=== PATIENT | female | born 1955 | race Caucasian/White ===

== ENCOUNTER 2018-07-25 16:45 | Outpatient (REF) | payer OTHER, SELFPAY ==
--- NOTE | 2018-07-25 15:30 | PAPFT_PTH ---
PATIENT: Melinda Sky LOC: [facility] U#:[id number] AGE/SX: 63/F ROOM: RE07/25/[address]: RAJ Lynn : 1955 BED: DIS: 07/25/2018 SPEC #: [id number] RECD: 07/26/18 12:51 STATUS: FANI SPENCER #: [id number] RACHAEL: 07/25/18 15:[address]: Meseret Patel DEPT: [facility] Cytology RECD BY: Melina Aparicio Tissues: 1 - CX/ENDOCX FOR PAP SMEARS Procedures: PAP THIN PREP/UVM Screening Comments: [id number] (UNSATISFACTORY FOR EVALUATION)
== END 2018-07-25 17:05 ==
LOC: LBN 16:45
PROVIDERS: PCP Nurse Practitioner Family; Visit Provider Nurse Practitioner Family
DX: Z12.4 Encounter for screening for malignant neoplasm of cervix (principal); Z11.51 Encounter for screening for human papillomavirus (HPV)
CPT/HCPCS: 88142; 87624

== ENCOUNTER 2018-07-25 16:52 | Outpatient (CLI) | payer OTHER, SELFPAY ==
[2018-07-25 18:58] LABS: Anion Gap 6.5 mmol/L (3-11); BUN 11 mg/dL (7-18); CO2 31.5 mmol/L (21.0-32.0); CREATININE 0.67 mg/dL (0.55-1.02); Calcium 8.8 mg/dL (8.5-10.1); Chloride 99 mmol/L (98-107); Cholesterol 161 mg/dL (50-200); Glucose 87 mg/dL (70-100); HDL Cholesterol 69 mg/dL (40-60); LDL CHOLESTEROL 86 mg/dL (<100); Potassium 3.7 mmol/L (3.5-5.1); Sodium 137 mmol/L (136-145); Triglyceride 39 mg/dL (30-150)
== END 2018-07-25 17:12 ==
PROVIDERS: PCP Nurse Practitioner Family; Visit Provider Nurse Practitioner Family
DX: I10 Essential (primary) hypertension (principal)
CPT/HCPCS: 36415; 80048; 80061; 83721

== ENCOUNTER 2018-10-04 09:28 | Outpatient (REF) | payer OTHER, SELFPAY ==
--- NOTE | 2018-10-04 08:30 | PAPFT_PTH ---
PATIENT: Melinda Sky LOC: [facility] U#:[id number] AGE/SX: 63/F ROOM: RE10/04/[address]: RAJ Lynn : 1955 BED: DIS: 10/04/2018 SPEC #: [id number] RECD: 10/04/18 12:49 STATUS: FANI SPENCER #: [id number] RACHAEL: 10/04/18 08:[address]: Meseret Patel DEPT: [facility] Cytology RECD BY: Melina Aparicio Tissues: 1 - CX/ENDOCX FOR PAP SMEARS Procedures: PAP THIN PREP/UVM Screening HPV DNA PROBE Comments: [id number]
== END 2018-10-04 09:48 ==
LOC: LBN 09:28
PROVIDERS: PCP Nurse Practitioner Family; Visit Provider Nurse Practitioner Family
DX: Z12.4 Encounter for screening for malignant neoplasm of cervix (principal); Z11.51 Encounter for screening for human papillomavirus (HPV)
CPT/HCPCS: 88142; 87624

== ENCOUNTER 2019-01-03 12:30 | Outpatient (REF) | payer OTHER, SELFPAY | END 2019-01-03 12:50 | LOC: LBN 12:30 | PROVIDERS: PCP Nurse Practitioner Family; Visit Provider Nurse Practitioner Family | DX: N30.90 Cystitis, unspecified without hematuria (principal) | CPT/HCPCS: 87077; 87086; 87186 ==

== ENCOUNTER 2019-08-02 02:32 | Outpatient (CLI) | payer OTHER, SELFPAY ==
[2019-08-02 07:50] LABS: Hemoglobin A1C 5.2 % (4.5-6.2)
[2019-08-02 08:59] LABS: BUN 16 mg/dL (7-18); CREATININE 0.68 mg/dL (0.55-1.02); Calcium 9.3 mg/dL (8.5-10.1); Calculated LDL 87 mg/dL; Chloride 104 mmol/L (98-107); Cholesterol 163 mg/dL (50-200); Glucose 87 mg/dL (70-100); HDL Cholesterol 69 mg/dL (40-60); Potassium 4.1 mmol/L (3.5-5.1); Sodium 141 mmol/L (136-145); Triglyceride 38 mg/dL (30-150)
== END 2019-08-02 02:52 ==
PROVIDERS: PCP Nurse Practitioner Family; Visit Provider Nurse Practitioner Family
DX: I10 Essential (primary) hypertension (principal)
CPT/HCPCS: 36415; 80048; 80061; 83036

== ENCOUNTER 2020-08-06 20:50 | Outpatient (REF) | payer MEDICARE, BC, SELFPAY ==
[2020-08-06 21:27] LABS: Anion Gap 6.6 mmol/L (3-11); BUN 14 mg/dL (7-18); CO2 29.4 mmol/L (21.0-32.0); Calcium 9.5 mg/dL (8.5-10.1); Chloride 98 mmol/L (98-107); Glucose 96 mg/dL (74-106); Potassium 3.9 mmol/L (3.5-5.1); Sodium 134 mmol/L (136-145)
== END 2020-08-06 21:10 ==
LOC: LBN 20:50
PROVIDERS: PCP Nurse Practitioner Family; Visit Provider Nurse Practitioner Family
DX: I10 Essential (primary) hypertension (principal)
CPT/HCPCS: 80048

== ENCOUNTER 2020-09-15 01:01 | Outpatient (CLI) | payer MEDICARE, BC, SELFPAY ==
--- NOTE | 2020-09-15 08:00 | DI.DEXA_ITS ---
EXAM: XR DEXA BONE DENSITY W/WO ABRAM CLINICAL HISTORY: Osteoporosis screening IN POSTMENOPAUSAL WOMAN,Z78.0 TECHNIQUE: COMPARISON: No exams were available for comparison FINDINGS: Lateral Spine Image: Unremarkable. No compression deformities identified. Left hip: Total T-Score: 0.5 Total Z-Score: 1.7 T- and Z-scores: Within normal limits. Lumbar Spine: Total T-Score: 1.5 Total Z-Score: 3.3 T- and Z-scores: Within normal limits. IMPRESSION: No evidence of osteoporosis.
== END 2020-09-15 01:21 ==
PROVIDERS: PCP Nurse Practitioner Family; Visit Provider Nurse Practitioner Family
DX: Z78.0 Asymptomatic menopausal state (principal)
CPT/HCPCS: 77080

== ENCOUNTER 2020-10-07 03:45 | Outpatient (CLI) | payer MEDICARE, BC, SELFPAY ==
[2020-10-07 10:30] LABS: Anion Gap 7.6 mmol/L (3-11); BUN 16 mg/dL (7-18); CO2 29.4 mmol/L (21.0-32.0); CREATININE 0.71 mg/dL (0.55-1.02); Calcium 8.9 mg/dL (8.5-10.1); Chloride 101 mmol/L (98-107); Glucose 106 mg/dL (74-106); Potassium 3.7 mmol/L (3.5-5.1); Sodium 138 mmol/L (136-145)
== END 2020-10-07 04:05 ==
PROVIDERS: PCP Nurse Practitioner Family; Visit Provider Nurse Practitioner Family
DX: E87.1 Hypo-osmolality and hyponatremia (principal)
CPT/HCPCS: 36415; 80048

== ENCOUNTER 2021-09-24 02:55 | Outpatient (CLI) | payer MEDICARE, BC, SELFPAY ==
[2021-09-24 12:46] LABS: Anion Gap 9.2 mmol/L (3-11); BUN 10 mg/dL (7-18); CO2 28.8 mmol/L (21.0-32.0); CREATININE 0.6 mg/dL (0.55-1.02); Calcium 8.9 mg/dL (8.5-10.1); Calculated LDL 89 mg/dL (<100); Chloride 97 mmol/L (98-107); Cholesterol 162 mg/dL (<200); Glucose 85 mg/dL (74-106); HDL Cholesterol 61 mg/dL (40-60); Potassium 3.6 mmol/L (3.5-5.1); Sodium 135 mmol/L (136-145); Triglyceride 60 mg/dL (<150)
== END 2021-09-24 02:56 | disposition home or self-care (01) ==
PROVIDERS: PCP Nurse Practitioner Family; Visit Provider Nurse Practitioner Family
DX: I10 Essential (primary) hypertension (principal)
CPT/HCPCS: 36415; 80048; 80061

== ENCOUNTER → 2022-04-15 09:49 | Outpatient (BNVA) | payer MEDICARE, BC, SELFPAY | PROVIDERS: PCP Nurse Practitioner Family; Referring Provider Nurse Practitioner Family; Visit Provider Physical Therapy Assistant | DX: Z12.11 Encounter for screening for malignant neoplasm of colon (principal) ==

== ENCOUNTER 2022-05-02 06:44 | Day surgery (SDC) | payer MEDICARE, BC, SELFPAY ==
--- NOTE | 2022-05-02 06:49 | W.COLOREPORT ---
Colonoscopy Report Date of procedure: 05/02/22 Pre-op diagnosis general: Colon Cancer Screening Post-op diagnosis procedure note: other (small polyp) Procedure: Colonoscopy with polypectomy Surgeon: Seble Burgess Anesthesia Type: General:No Airway Estimated blood loss (mL): 2 Pathology: other (ascending polyp) Complications: None Disposition: same day Indications: The patient is here for Colonoscopy pre-op. Her last screening was in 2010 and was unremarkable. She has no family history of colon cancer. She has not had any bowel habit changes. Prep: Miralax/Dulcolax Procedure Start Time: 08:33 Procedure End Time: 09:00 Retraction Time: 11 minutes Findings: One small polyp Procedure Description: After informed consent was obtained the patient was taken to the procedure room and placed in a left decubitous position. Monitors were applied and a time out was done. The patients name, date of , procedure, allergies to medications and metal in their body was reviewed. The patient was then sedated. Once sedated and comfortable a rectal exam was done. External exam was normal. Internal exam revealed a normal sphincter tone and no palpable masses. The scope was then introduced and retro-flexed. no internal hemorrhoids, polyps or masses were identified on retro-flexion. The scope was then advanced to the cecum without difficulty. The ileocecal vlave and appendiceal orifice were identified. The prep was good. The scope was then slowly retracted over 11 minutes back into the rectum. Polyps were removed with cold forceps in the ascending colon. There was no diverticulosis noted. The scope was removed and the patient was woken up and taken back to Same day surgery in stable condition. The patient tolerated the procedure well and there were no immediate complications.
[2022-05-02 06:50] VITALS: BP 144/89; PULSE 74; RESP 18; TEMP 36.6; O2SAT 99
--- NOTE | 2022-05-02 06:51 | W.PM.DSUDISC ---
Discharge Plan Disposition Patient Disposition: HOME Condition: Good Discharge Details Reason For Visit: Colon Cancer Screening Attending Provider: Seble Burgess Primary Care Provider: Meseret Patel Home Meds and New Rx's Prescriptions: Continued glucos sul [id number]-[id number]-[id number]-C-Mn 550-30-1 mg capsule 1 cap PO DAILY PreserVision AREDS 14,320-226-200 znan-vy-owvg capsule 1 cap PO QAM AND QPM Airborne Elderberry 1,000 mg-50 mg-35.5 mg tablet, effervescent 1 tab PO DAILY ondansetron 4 mg tablet,disintegrating 4 mg PO TID PRN (Reason: nausea and vomiting) Qty: 30 0RF Rx Instructions: Dissolve 1 tab beneath tongue q6-8hrs as needed for nausea during plane trips multivitamin [Multi-Day] 1 EACH tablet 1 ea PO DAILY ascorbic acid (vitamin C) 1,000 MG tablet 1,000 mg PO DAILY calcium carbonate-vitamin D3 1 EACH capsule 1 ea PO DAILY echinacea 400 MG capsule 2 cap PO am CRANBERRY + VIT C SOFTGEL 4,200 mg capsule 2 each PO DAILY chlorthalidone 25 mg tablet 25 mg PO DAILY Qty: 90 4RF Rx Instructions: Take 1 pill daily losartan 100 mg tablet 100 mg PO DAILY Qty: 90 4RF Discontinued bisacodyl [Dulcolax (bisacodyl)] 5 mg tablet,delayed release (DR/EC) 5 mg PO ONCE Qty: 4 0RF Rx Instructions: Take according to provider's instructions for colonoscopy prep. polyethylene glycol 3350 17 gram/dose powder 17 g PO ONCE Qty: 238 0RF Rx Instructions: To be taken as directed by prescriber's office for colonoscopy prep. Discharge Instructions Additional Instructions: Findings: one small polyp Follow up: 5 years Please call if you develop: fevers >101.5 Nausea or Vomiting Abdominal pain that is not transient Rectal bleeding that is more then a tbsp A hard abdomen and inability to pass gas DAY SURGERY UNIT POST ENDOSCOPY INSTRUCTIONS Instructions for everyone who is given Anesthesia: For your safety, please do the following for the next 24 Hours: a. Do not drive or operate dangerous equipment b. Do not drink alcohol beverages or use any recreational drugs for the first 24 hours or while taking pain medications. The medications in your body may have a reaction that can be dangerous. c. Do not make any important decisions or sign any important papers 1. Generally there are no restrictions on your activity after a day or so has gone by, but you may feel a bit fatigued for a few days. 2. After you arrive home you may have a light meal and return to a normal diet as you can tolerate it without feeling sick to your stomach. 3. After surgery, you may feel pain or discomfort. This should be only transient, but if it persists please contact your doctor. 4. If there are any questions regarding the findings of your procedure, please feel free to contact your doctor. 6. If you are unable to contact your doctor with a problem, contact the hospital at [phone]. 7. Continue all your regular medications unless directed otherwise. I understand the above instructions and have no questions. Signature of Patient or Responsible Adult Escort Date/Time Name of Responsible Adult Escort Signature of Nurse Date/Time Activity:: Activity as Tolerated Diet:: As Tolerated Discharge Orders Discharge Orders: Discharge Order (Routine); Ordered 05/02/22 Ordered By: Seble Burgess
--- NOTE | 2022-05-02 06:59 | W.ANESPRE ---
General Info Date of Service Date Performed: 05/02/22 Height: 5 ft 6 in Weight: 65.317 kg Body Mass Index (BMI): 23.2 Surgical Procedure: Operation Date: 05/02/22 08:35 Proposed Procedure Side Surgeon alma Burgess MD Meds Allergies and Home Medications Allergies Allergy/AdvReac Type Severity Reaction Status Date / Time chocolate flavor AdvReac Severe MIGRAINE, Verified 05/02/22 06:36 peanut AdvReac Severe COUGHING, Verified 05/02/22 06:36 WHEEZING lisinopril AdvReac Mild COUGH Verified 05/02/22 06:36 fake fur, fleece Allergy Severe RASH, Uncoded 05/02/22 06:36 ASTHMA ATTACK PINK INSULATION Allergy Severe SWELLING Uncoded 05/02/22 06:36 Home Medication Medication Instructions Recorded ascorbic acid (vitamin C) 1,000 mg 1,000 mg PO DAILY 02/09/13 tablet calcium carbonate 600 mg-vitamin 1 ea PO DAILY 02/09/13 D3 10 mcg (400 unit) capsule multivitamin (Multi-Day tablet) 1 ea PO DAILY 02/09/13 echinacea 400 mg capsule 2 cap PO am 02/12/13 ondansetron 4 mg disintegrating 4 mg PO TID PRN nausea and 07/25/18 tablet vomiting #30 tabs CRANBERRY + VIT C SOFTGEL 2 each PO DAILY 07/31/19 glucosamine sulf dipot 1 cap PO DAILY 07/31/19 chlr,msm,chond 550 mg-C 30 mg-edwin 1 mg capsule mv-min-vit C 1,000 mg-elderberry 1 tab PO DAILY 08/06/20 50 mg-herb 35.5mg effervescent tablet (Airborne Elderberry) vitamins A,C,F-dzqf-aaysfy 14,320 1 cap PO QAM AND QPM 08/06/20 unit-226 mg-200 unit capsule (PreserVision AREDS) chlorthalidone 25 mg tablet 25 mg PO DAILY #90 tabs 08/04/21 losartan 100 mg tablet 100 mg PO DAILY #90 tabs 08/04/21 bisacodyl 5 mg tablet,delayed 5 mg PO ONCE #4 tabs 04/15/22 release (Dulcolax (bisacodyl)) polyethylene glycol 3350 17 17 g PO ONCE #238 grams 04/15/22 gram/dose oral powder Current Visit Medications: Current Medications Generic Name Dose Route Start Last Admin Trade Name Freq PRN Reason Stop Dose Admin Hyoscyamine Sulfate 0.125 mg 05/02/22 06:52 Hyoscyamine 0.125 Mg Sl/Oral/Chew SL DIRECTED PRN Ringer's Solution 1,000 mls @ 80 mls/hr 05/02/22 06:00 IV 05/29/22 23:59 INFUSION RICARDO IV Miscellaneous Supplies 1 each 05/02/22 06:00 Iv Access IV 05/29/22 23:59 DIRECTED RICARDO Ondansetron HCl 4 mg 05/02/22 06:52 Ondansetron 4 Mg/2 Ml Vial IVP Q4H PRN PRN Nausea / Vomiting Sodium Chloride 0 ml 05/02/22 06:00 Normal Saline Flush 10 Ml Syr IV 05/29/22 23:59 PRN PRN Sodium Chloride 0 ml 05/02/22 06:00 Normal Saline 10 Ml Vial IJ 05/29/22 23:59 DIRECTED PRN Sterile Water 0 ml 05/02/22 06:00 Water,Injection,Sterile 10 Ml Vial IJ 05/29/22 23:59 DIRECTED PRN PFSH Active Problems Active Problems: Problem Status Onset Code Screening for colon cancer Z12.11 Medical History Medical History Essential hypertension Essential tremor Malignant melanoma of skin of right thigh (~02/1996) 0.5mm Breslow depth, right inner thigh near the medial knee Reactive airway disease Medical History Comments:: Pt. states 30 minutes after she leaves the hospital after a colonoscopy she ends up throwing up. Surgical History Surgical History Hx of colonoscopy S/P removal of ovarian cyst (~1981) S/P right breast biopsy (10/20/10) Benign biopsy--dense stromal fibrosis S/P tonsillectomy and adenoidectomy Tobacco Smoking/Tobacco Use Status: Never Passive smoking exposure: No Second hand exposure: Yes Alcohol Alcohol Intake: never Substance Use Substance use: Never Substance use type: does not use Prental History History 0 Para Hx # Term Pregnancies Multiple births Hx # Pregnancies Ectopic pregnancies AB induced Hx Number of Living Children AB spontaneous Vital Signs and Lab Results Lab Results Blood Type / Crossmatch: No Data to Display Complete Blood Count: No Data to Display Complete Metabolic Panel: No Data to Display Liver Function Panel: No Data to Display Coagulation Panel: No Data to Display Cardiac Panel: No Data to Display Arterial Blood Gas: No Data to Display Venous Blood Gas: No Data to Display Pancreas Panel: No Data to Display Thyroid Panel: No Data to Display Infectious Disease: No Data to Display Blood Cultures: No Data to Display Toxicology Panel: No Data to Display Anesthesia Assessment and Plan Anesthesia History Personal History: PONV Family History: No Family History of Anesthesia Complications Exercise Tolerance Exercise Tolerance: Metabolic Equivalents>4 Pertinent Negatives Pertinent Negatives: No Symptoms of GERD, No Major Cardiovascular Symptoms or Complaints, No Major Pulmonary Symptoms or Complaints and No History of CVA/TIA Cardiac & Pulmonary Exam Cardiac Exam: Normal S1/S2 Heart Sounds Pulmonary Exam: Clear Bilateral Breath Sounds Implantable Cardiac Device Does patient have a Pacemaker or an ICD?: No Airway Exam Known Difficult Airway: No Mallampati Class: 2 Mouth Opening: Normal (> 3cm) Thyromental Distance: Greater than 3 cm Neck Range of Motion: Full ROM Neck Circumference: Normal Teeth Condition: Normal Dentition ASA Classification ASA Score: ASA 2 Emergency Case?: No NPO Status NPO Status: NPO Clears >2 hours, Solids >8 hours Anesthesia Plan Resuscitation Status: Full Code Anesthesia Technique: General Anesthesia Airway Planned: Natural Airway Monitors Used: Standard Monitors
[2022-05-02] MEDS: Lactated Ringers 1,000 ML 80 ML IV (07:15)
[2022-05-02 08:40] VITALS: BMI 23.2
--- NOTE | 2022-05-02 08:50 | BOWEL_PTH ---
PATIENT: Melinda Sky LOC: [facility] U#:[id number] AGE/SX: 67/F ROOM: RE05/02/[address]: Seble Burgess MD : 1955 BED: DIS: 05/02/2022 SPEC #: [id number] RECD: 05/02/22 13:07 STATUS: FANI SPENCER #: [id number] RACHAEL: 05/02/22 08:[address]: Seble Burgess DEPT: Surgical Specimen RECD BY: Melina Aparicio ENTERED: 05/02/22 13:08 SP TYPE: Bowel OTHR DR: RAJ Lynn Tissues: 1 - BIOPSY BOWEL Procedures: GROSS AND MICRO LEVEL 4 Comments: [id number]
[2022-05-02 09:08] VITALS: BP 105/71; PULSE 59; RESP 16; TEMP 36.2; O2SAT 98
[2022-05-02 09:30] VITALS: BP 111/78; PULSE 58; RESP 16; TEMP 36.2; O2SAT 96
--- NOTE | 2022-05-02 09:32 | W.ANESPOSTOP ---
Postoperative Evaluation Date, Time and Location Date Performed: 05/02/22 Time Performed: 09:10 Patient Location: Day Surgery Unit Vital Signs Most Recent Imported Vital Signs: Most Recent Vital Signs Temp Pulse Resp BP Pulse Ox 36.2 C L 59 L 16 105/71 98 05/02/22 09:08 05/02/22 09:08 05/02/22 09:08 05/02/22 09:08 05/02/22 09:08 Pain Score Most Recent Pain Score: Most Recent Pain Score Pain Level 0 05/02/22 09:08 Assessment Mental Status: Awake (Alert & Oriented to Patient Baseline) Airway and Respiratory Function: Patent airway with normal (patient baseline) respiratory exam Cardiovascular Function: Hemodynamically Stable Hydration Status: Adequately Hydrated Nausea & Vomiting: No Nausea or Vomiting Pain: Pt. Denies Any Pain Peripheral Nerve Block: Patient did not receive a nerve block
== END 2022-05-02 09:54 | disposition home or self-care (01) ==
PROVIDERS: PCP Nurse Practitioner Family; Visit Provider Surgery
PROC: 0DJD8ZZ Inspection of Lower Intestinal Tract, Via Natural or Artificial Opening Endoscopic (ICD-10-PCS; CPT 45378; principal; 2022-05-02 08:30)
DX: Z12.11 Encounter for screening for malignant neoplasm of colon (principal); K63.5 Polyp of colon; I10 Essential (primary) hypertension; K63.89 Other specified diseases of intestine
CPT/HCPCS: 45380; 88305; J2405

== ENCOUNTER 2022-10-07 01:24 | Outpatient (CLI) | payer MEDICARE, BC, SELFPAY ==
--- OUTSIDE RECORDS SUMMARY | 2022-10-07 01:34 | XMS_ITS | Encounter Summary ---
:1955 Author Organization [place] [address] Care Team Providers Name Role Phone Alison Clemons MD Primary Care Provider Encounter Details Date Type Department Care Team Description 10/20/2010 Procedure visit [place] [address] Social History Tobacco Use Types Packs/Day Years Used Date Smoking Tobacco: Never Assessed Sex Assigned at Date Recorded Not on file documented as of this encounter Plan of Treatment Upcoming Encounters Date Type Specialty Care Team Description 01/09/2023 Office Visit Dermatology Keyshawn Morin MD [address] [place] [address] DERMATOLOGY [place], [place] [address] (Wo rk) documented as of this encounter Visit Diagnoses Not on filedocumented in this encounter Care Teams Escalator Mechanic Relationship Specialty Start Date End Date Alison Clemons MD PCP - General 09/28/10 11/30/17 [address] [place], [place] [address] documented as of this encounter
--- OUTSIDE RECORDS SUMMARY | 2022-10-07 01:34 | XMS_ITS | Encounter Summary ---
:1955 Author Organization [facility] [place] [address] Care Team Providers Name Role Phone Alison Clemons MD Primary Care Provider Reason for Visit Reason Comments Annual Exam Encounter Details Date Type Department Care Team Description 10/09/2012 Office Visit Dermatology Keyshawn Morin, History of malignant [address] [facility] melanoma (Primary Dx) [address] [place], [place] DERMATOLOGY [id number] [place] [address] [phone] (Wo rk) Social History Tobacco Use Types Packs/Day Years Used Date Smoking Tobacco: Never Smokeless Tobacco: Never Sex Assigned at Date Recorded Not on file documented as of this encounter Progress Notes Keyshawn Morin MD - 10/09/2012 8:36 AM EST Problems: 1. Yearly skin checkup. 2. History of malignant melanoma, February 1996, 0.54 mm, right inner thigh near medial knee. Rhina follows up and has been doing well. She has not had any new issues. She is here for a yearly skin checkup. Physical examination reveals a pleasant, now 57-year-old woman who has a benign examination of the head and the neck, the chest, the back, hands, arms, forearms, thighs, and calves. She continues to have a 4-mm, dark brown, compound versus intradermal nevus on the mid to lower occipital scalp centrally. There is no evidence of recurrent melanoma on the right inner thigh excision site. She has two acrolentiginous nevi on the sole of her right foot, similarly sized as per the photograph from April 2005. Assessment and Plan: Benign skin examination. a. Patient reassured about benign skin examination. b. Return to the clinic in one year for recheck. c. Continue sun avoidance precautions. d. No evidence of recurrent melanoma from February 1996. Copy: Alison Clemons M.D. documented in this encounter Plan of Treatment Upcoming Encounters Date Type Specialty Care Team Description 01/09/2023 Office Visit Dermatology Keyshawn Morin MD [address] [place] [address] DERMATOLOGY [place], [place] [address] (Wo rk) documented as of this encounter Visit Diagnoses Diagnosis History of malignant melanoma - Primary Personal history of malignant melanoma o f skin documented in this encounter Care Teams Gyroscope Repairer Relationship Specialty Start Date End Date Alison Clemons MD PCP - General 09/28/10 11/30/17 [address] [place] [address] documented as of this encounter
--- OUTSIDE RECORDS SUMMARY | 2022-10-07 01:34 | XMS_ITS | Encounter Summary ---
:1955 Author Organization [facility] [place] [address] Care Team Providers Name Role Phone Meseret Patel APRN Primary Care Provider Reason for Referral Diagnostic Test (Routine) - Closed Specialty Diagnoses / Procedures Referred By Contact Refer red To Contact Radiology Diagnoses Encounter for screening mammogram for malignant neoplasm of breast Meseret Patel APRN [facility] Rad Mammography Procedures Mammo Screening Cad and Jewel Bilateral [address] [place], [place] [address] [place] [address] Phone: Referral ID Status Reason Start Date Expiration Date Visits V isits Requested Authorized [id number] Closed Specialty 11/01/2021 05/02/2023 1 1 Service Requested Reason for Visit Diagnostic Test (Routine) - Closed Specialty Diagnoses / Procedures Referred By Contact Refer red To Contact Radiology Diagnoses Encounter for screening mammogram for malignant neoplasm of breast Meseret Patel APRN [facility] Rad Mammography Procedures Mammo Screening Cad and Jewel Bilateral [address] [place], [place] [address] [place] [address] Phone: Referral ID Status Reason Start Date Expiration Date Visits V isits Requested Authorized [id number] Closed Specialty 11/01/2021 05/02/2023 1 1 Service Requested Encounter Details Date Type Department Care Team Description 12/08/2021 Hospital Encounter Mammography/DXA at [facility] , Encounter for [facility] [employer]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 0 2012 (VITAMIN C) 1,000 mg Tablet ketoconazole (NIZORAL) 2 % Use on a daily 120 mL 0 01/03 Shampoo basis for 2 wks and then switch to selenium sulfide 2.5% lotion. Rinse out lather after 2-3 min. Cranberry Extract 450 mg Take by mouth. 0 Tablet CIS Free Text Med - 0 11/30/2006 Calcium 600 with Vitamin D2 multivitamin (THERAGRAN) 0 11/30/2006 tablet losartan-hydrochlorothiazi 1 Tablet(s), PO, 0 de (HYZAAR) 100-25 mg per Once daily tablet losartan (COZAAR) 100 mg 0 12/24/2020 01/06/2022 Tablet documented as of this encounter Plan of Treatment Upcoming Encounters Date Type Specialty Care Team Description 01/09/2023 Office Visit Dermatology Keyshawn Morin MD [address] [place] [address] RD DERMATOLOGY [place], [place] [address] (Wo rk) documented as of this encounter Procedures Procedure Name Priority Date/Time Associated Diagnosis Comme nts MAMMO SCREENING CAD Routine 12/08/2021 10:48 AM Encounter for Results for this AND JEWEL BILATERAL EST screening mammogram pr ocedure are in for malignant the results neoplasm of breast section. documented in this encounter Results Mammo Screening Cad and Jewel Bilateral (12/08/2021 10:48 AM EST) Anatomical Region Laterality Modality Breast Bilateral Mammography Specimen (Source) Anatomical Location Collection Method / Collectio n Time Received Time / Laterality Volume Narrative 12/08/2021 11:10 AM EST BILATERAL MAMMOGRAPHY REASON FOR EXAM: Screening TECHNIQUE: CC and MLO views were obtaine d of each breast using standard 2-D mammography as well as 3-D tomosynth esis. Computer aided detection was used. This is compared with prior images . FINDINGS: There are scattered areas of f ibroglandular density. There are no suspicious microcalcifications, radha s, or areas of distortion. The pattern is stable. CONCLUSION: No mammographic evidence of malignancy. RECOMMENDATION: Regular screening mammograms starting be tween age 40 and 50 reduces the risk of from breast cancer. All screening tests have both risks and benefits. These risks and benefits should be assessed for each individual p atient through discussion with their provider to determine their prefer red breast cancer screening schedule. Women should report any breast changes t o a health care provider right away. Some women, because of their family hist ory, a genetic tendency, or other factors, should be screened with annual breast MRI as well as with mammograms. (The number of women who fal l into this category is very small). Patients and health care provide rs should discuss each patient? s history to decide if earlier screening a nd/or breast MRI are appropriate. Screening should continue as long as a w randy is in good health and is expected to live 10 years or longer. Screening mammography may not detect 10- 15% of breast cancers. A result letter has been sent to this pa tient by [facility]. BIRADS CATEGORY 1: NEGATIVE Electronically signed by: VENKATESH ZUNIGA MD Meseret Patel APRN IMG MAMMO ORDERABLES documented in this encounter Visit Diagnoses Diagnosis Encounter for screening mammogram for ma lignant neoplasm of breast Other screening mammogram documented in this encounter Care Teams Manager Clinical Pharmacy Relationship Specialty Start Date End Date Meseret Patel APRN PCP - General Family Medicine 12/07/[address] [place] [address] documented as of this encounter
--- OUTSIDE RECORDS SUMMARY | 2022-10-07 01:34 | XMS_ITS | Encounter Summary ---
:1955 Author Organization [facility] [place] [address] Care Team Providers Name Role Phone Alison Clemons MD Primary Care Provider Reason for Visit Reason Comments Skin Check Encounter Details Date Type Department Care Team Description 09/25/2014 Office Visit Dermatology at [facility], History of malignant melanoma; Derrick GUERRERO Irritated nevus of right upper arm [address] [facility] Mariano B DERMATOLOGY [place], [place] [id number] [phone] Social History Tobacco Use Types Packs/Day Years Used Date Smoking Tobacco: Never Smokeless Tobacco: Never Sex Assigned at Date Recorded Not on file documented as of this encounter Progress Notes Keyshawn Morin MD - 09/25/2014 3:35 PM EST Problem List: 1. Early yearly skin checkup. 2. History of malignant melanoma, February 1996, 0.54 mm Breslow depth, right inner thigh near medial knee. Rhina follows up and has been doing well. She continues to be happy with her new relationship with a significant other living from a distance in [place], in [place]. She noted yesterday a mole that started to bleed on the right lateral shoulder and wanted to have it checked. She should have received notice of a October yearly annual check, but had not heard anything yet. Physical examination reveals a pleasant 59-year-old woman who has a 5 mm inflamed pigmented lesion on the right lateral shoulder. It appears to be slightly excoriated. Otherwise, careful examination of the head and the neck, the chest, the back, hands, arms, forearms, thighs, and calves is benign. She continues to have a 4 mm, dark brown, compound versus intradermal nevus on the mid occipital scalp centrally. There is no evidence of recurrent melanoma on the right inner thigh excision site. She continues to have two acral lentiginous nevi on the sole of her right foot, similarly sized as per photograph from April of 2005. Assessment and Plan: 1. Benign skin examination. a. Patient reassured about benign skin examination. b. Continue sun avoidance precautions. c. Recommend I see her in another year for repeat check. 2. Probable irritated nevus, right lateral arm. a. To rule out possibility of melanoma, today shave biopsy was utilized to remove the entire lesion, and it was submitted for pathologic analysis. b. Base was lightly electrodesiccated. c. Wound care instructions and supplies given. Will notify patient of biopsy results in the next three to four days. COPY: Alison Clemons M.D. documented in this encounter Plan of Treatment Upcoming Encounters Date Type Specialty Care Team Description 01/09/2023 Office Visit Dermatology Keyshawn Morin MD [address] [facility] DERMATOLOGY [place], [place] [address] (Wo rk) documented as of this encounter Visit Diagnoses Diagnosis History of malignant melanoma Personal history of malignant melanoma o f skin Irritated nevus of right upper arm documented in this encounter Care Teams Dust Control Engineer Relationship Specialty Start Date End Date Alison Clemons MD PCP - General 09/28/10 11/30/17 [address] [place] [address] documented as of this encounter
--- OUTSIDE RECORDS SUMMARY | 2022-10-07 01:34 | XMS_ITS | Encounter Summary ---
:1955 Author Organization [facility] [place] [address] Care Team Providers Name Role Phone Alison Clemons MD Primary Care Provider Encounter Details Date Type Department Care Team Description 10/19/2012 Hospital Encounter Mammography at [facility], DR BRI[facility] Alison Tariq MD [address] [place] [address] [place] [address] Social History Tobacco Use Types Packs/Day Years Used Date Smoking Tobacco: Never Smokeless Tobacco: Never Sex Assigned at Date Recorded Not on file documented as of this encounter Medications at Time of Discharge Medication Sig Dispensed Refills Start Date End Date Cranberry Extract 450 mg Take by mouth. 0 Tablet CIS Free Text Med - 0 11/30/2006 Calcium 600 with Vitamin D2 multivitamin (THERAGRAN) 0 11/30/2006 tablet losartan-hydrochlorothiaz 1 Tablet(s), PO, 0 11/07 jesusita (HYZAAR) 100-25 mg Once daily per tablet ZOLPIDEM TARTRATE (AMBIEN Take by mouth 0 01/04/2021 ORAL) nightly as needed. ibuprofen (ADVIL;MOTRIN) 800MG, PO, Three 0 11/3001/04/2021 800 mg tablet times daily PRN ascorbic acid (VITAMIN C) 0 11/30/2006 01/04/2021 1,000 mg tablet documented as of this encounter Plan of Treatment Upcoming Encounters Date Type Specialty Care Team Description 01/09/2023 Office Visit Dermatology Keyshawn Morin MD [address] [place] [address] DERMATOLOGY [place], [place] [address] (Wo rk) documented as of this encounter Procedures Procedure Name Priority Date/Time Associated Diagnosis Comme nts MAMMO SCREENING CAD Routine 10/19/2012 8:38 AM Re sults for this BILATERAL EST procedure are i n the results section. documented in this encounter Results Mammo digital bilateral Screening with CAD (10/19/2012 8:38 AM EST) Anatomical Region Laterality Modality Breast Bilateral Mammography Specimen (Source) Anatomical Collection Method Collection Time Re ceived Time Location / / Volume Laterality 10/19/2012 8:38 AM EST Narrative 10/22/2012 9:56 AM EST Reason for Exam: Screening ?? Technique: Craniocaudal (CC) and Medio-l ateral Oblique (MLO) views of both breasts obtained with direct digital cap ture. The exam was evaluated by CAD version 8. 3.17. ?? Findings: ?? This is a negative mammogram (ACR Catego ry 1). ??There is a stable fibroglandular pattern without significa nt change from prior studies. There is no mammographic evidence of can cer. ??The breasts are of scattered density. ?? CONCLUSION: This is a NEGATIVE mammogram (ACR Catego ry 1). ?? Routine screening mammography is recomme nded with the frequency dependent upon the patient's age and breast cancer risk factors. A letter has been sent to this patient b y the breast imaging center. Procedure Note Thea Loco MD - 10/22/2012Formattin g of this note might be different from the original. Reason for Exam: Screening Technique: Craniocaudal (CC) and Medio-l ateral Oblique (MLO) views of both breasts obtained with direct digital cap ture. The exam was evaluated by CAD version 8. 3.17. Findings: This is a negative mammogram (ACR Catego ry 1). There is a stable fibroglandular pattern without significa nt change from prior studies. There is no mammographic evidence of can cer. The breasts are of scattered density. CONCLUSION: This is a NEGATIVE mammogram (ACR Catego ry 1). Routine screening mammography is recomme nded with the frequency dependent upon the patient's age and breast cancer risk factors. A letter has been sent to this patient b y the breast imaging center. Alison Clemons MD IMG MAMMO ORDERABLES documented in this encounter Visit Diagnoses Not on filedocumented in this encounter Care Teams Marine Electrician Helper Relationship Specialty Start Date End Date Alison Clemons MD PCP - General 09/28/10 11/30/17 [address] [place] [address] documented as of this encounter
--- OUTSIDE RECORDS SUMMARY | 2022-10-07 01:34 | XMS_ITS | Encounter Summary ---
:1955 Author Organization [facility] [place] [address] Care Team Providers Name Role Phone Meseret Patel APRN Primary Care Provider Reason for Visit Reason Comments Skin Check Encounter Details Date Type Department Care Team Description 01/04/2021 Office Visit Dermatology at [facility]in, History of malignant melanoma; Derrick GUERRERO Nevus; [address] [facility] Seborrheic dermatitis [facility] DERMATOLOGY [place], [place] [id number] [phone] Social History Tobacco Use Types Packs/Day Years Used Date Smoking Tobacco: Never Smokeless Tobacco: Never Sex Assigned at Date Recorded Not on file documented as of this encounter Progress Notes Keyshawn Morin MD - 01/04/2021 10:00 AM EST Problem: 1. ??Yearly skin checkup 2. ??History of malignant melanoma, February 1996, 0.5 mm Breslow depth, right inner thigh near the medial knee Rhina follows up for yearly check. She has been doing well. She has not noted any new lesions of concern is here for her yearly skin checkup. She is retired now from work. Physical examination reveals a pleasant 65-year-old woman who has a benign examination of the head and the neck the chest the back the hands the arms the forearms the thighs and the calves. She is a well-healed scar on the right inner thigh near the medial knee. There is no evidence of recurrent pigmentation. She does have an itchy erythematous flattopped papule consistent with an irritated seborrheic keratosis/early nevus on the left medial calf. Assessment plan: History of malignant melanoma 1. Patient reassured about her benign skin examination today 2. Continue sun avoidance precautions. 3. Continue our once yearly skin checkups. 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 Now largely resolved 2. Possibly due to chcf 3. We will renew her prior prescriptions if she requests them. Pruritic papule left lateral calf 1. LN2 x2 applied to site 2. If not successful in stopping itching, patient will make an appointment for shave biopsy removal of the site. CC: Meseret Patel APRN documented in this encounter Plan of Treatment Upcoming Encounters Date Type Specialty Care Team Description 01/09/2023 Office Visit Dermatology Keyshawn Morin MD [address] [facility] DERMATOLOGY [place], [place] [address] (Wo rk) documented as of this encounter Visit Diagnoses Diagnosis History of malignant melanoma Personal history of malignant melanoma o f skin Nevus Benign neoplasm of skin, site unspecifie d Seborrheic dermatitis Seborrheic dermatitis, unspecified documented in this encounter Care Teams Flask Pusher Relationship Specialty Start Date End Date Meseret Patel APRN PCP - General Family Medicine 12/07/[address] [place] [address] documented as of this encounter
--- OUTSIDE RECORDS SUMMARY | 2022-10-07 01:34 | XMS_ITS | Encounter Summary ---
:1955 Author Organization [facility] [place] [address] Care Team Providers Name Role Phone Alison Clemons MD Primary Care Provider Encounter Details Date Type Department Care Team Description 10/13/2011 Surgery Gastroenterology at [facility] Joshua Rosas, COLONOSCOPY, [facility] Kg ibrahim [place] [address] [facility] [phone] DR GASTROENTEROLOGY DEPT. [place], [place] [address] Social History Tobacco Use Types Packs/Day Years Used Date Smoking Tobacco: Never Smokeless Tobacco: Never Sex Assigned at Date Recorded Not on file documented as of this encounter Last Filed Vital Signs Vital Sign Reading Time Taken Comments Blood Pressure 122/75 10/13/2011 9:26 AM EST Pulse 64 10/13/2011 9:26 AM EST Temperature 36.7 ??C (98.1 ??F) 10/13/2011 8:20 AM EST Respiratory Rate 16 10/13/2011 9:26 AM EST Oxygen Saturation 97% 10/13/2011 9:26 AM EST Inhaled Oxygen Concentration - - Weight 67.6 kg (149 lb) 10/13/2011 8:20 AM EST Height - - Body Mass Index - - documented in this encounter Discharge Instructions Discharge Belinda Smith RN - 10/13/2011 9:27 AM EST Please call [phone], before 5pm with problems, questions or concerns, after 5pm call the Hospital at [phone] and ask to speak to the Line Therapist ordnance truck installation mechanic and the mud mixer operator will contact that person for you. Discharge instructions reviewed with patient who expresses understanding. Patient InstructionsJoshua Rosas MD - 10/13/2011 9:36 AM EST Please see Recommendations in the Provation procedure report which is documented in the procedural note in E-DH. AttachmentsThe following attachments cannot be sent through Care Everywhere. COLONOSCOPY: WHAT TO EXPECT AT HOME (ITALIAN)documented in this encounter Medications at Time of Discharge Medication Sig Dispensed Refills Start Date End Date CIS Free Text Med - 0 11/30/2006 Calcium 600 with Vitamin D2 multivitamin (THERAGRAN) 0 11/30/2006 tablet losartan-hydrochlorothiaz 1 Tablet(s), PO, 0 11/07 jesusita (HYZAAR) 100-25 mg Once daily per tablet GLUC/EDMAR-MSM#1/C/LEEANN/GLORIA Take by mouth daily. 0 10/09/2012 S/BOR (OSTEO BI-FLEX ORAL) ZOLPIDEM TARTRATE (AMBIEN Take by mouth 0 01/04/2021 ORAL) nightly as needed. CIS Free Text Med - 90MC-2 Puff(s), 0 007 10/09/2012 Albuterol Inh, Four times daily PRN ibuprofen (ADVIL;MOTRIN) 800MG, PO, Three 0 11/3001/04/2021 800 mg tablet times daily PRN ascorbic acid (VITAMIN C) 0 11/30/2006 01/04/2021 1,000 mg tablet documented as of this encounter H&P Notes Joshua Rosas MD - 10/13/2011 8:50 AM EST H&P done prior to procedure and documented in the endoscopy report located in the Procedures tab in eDH. documented in this encounter Miscellaneous Notes Miscellaneous - Provider, Scanning - 10/13/2011 9:24 PM EST Miscellaneous - Provider, Scanning - 10/13/2011 9:33 AM EST Op Note - Joshua Rosas MD - 10/13/2011 9:29 AM EST [facility] Operative Note Patient Name: Melinda Sky : [id number] MR#: [id number] Case Date: 10/13/2011 Surgeon: Surgeon(s) and Role: * JOSHUA ROSAS MD - Primary Preoperative diagnosis: 10YR SCREENING Postoperative diagnosis: * No post-op diagnosis entered * Procedure(s): COLONOSCOPY, DIAGNOSTIC Please see Procedure note. documented in this encounter Plan of Treatment Upcoming Encounters Date Type Specialty Care Team Description 01/09/2023 Office Visit Dermatology Keyshawn Morin MD [address] [facility] DERMATOLOGY [place], [place] [address] (Wo rk) documented as of this encounter Procedures Procedure Name Priority Date/Time Associated Comments Diagnosis COLONOSCOPY, 10/13/2011 8:53 AM 10YR SCREENING DIAGNOSTIC EST COLONOSCOPY Routine 10/13/2011 8:39 AM Results f or this EST procedure are i n the results section. documented in this encounter Results COLONOSCOPY (10/13/2011 8:39 AM EST) [facility] Method Time Signature COLONOSCOPY [facility] PROVATION Endoscopy Patient Name: Melinda Sky ? Procedure Date: 10/13/2011 08:39:32 AM ? Date of : 1955 ? Age: 56 ? Procedure: ? Colonoscopy Indications: ? Screening for malignant neoplasm in ? the colon Providers: ? Joshua Rosas MD, Nany Loomis ? TEJAS Paz, Anette Linton, ? Administrative Services Manager Referring : ?Alison Clemons MD Medicines: ? Midazolam 6 mg IV, Fentanyl 200 ? micrograms IV Complications: ? No immediate complications Procedure: ? Pre-Anesthesia Assessment: ? - Prior to the procedure, a H istory ? and Physical was performed, a nd ? patient medications, allergie s and ? sensitivities have been revie wed. The ? patient's tolerance of previo us ? anesthesia has been reviewed. ? - The risks and benefits of t he ? procedure and the sedation op tions ? and risks were discussed with the ? patient. All questions were a nswered ? and informed consent was obta ined. ? - ASA Grade Assessment: I - A normal, ? healthy patient. ? The procedure, indications, b enefits, ? risks and alternatives were e xplained ? to the patient. Specifically ? discussed were potential ? complications including, but not ? limited to, bleeding, perfora tion, ? infection, missing a cancer, and ? adverse medication reactions. The ? patient was placed in the lef t ? lateral decubitus position, a nd a ? digital rectal exam was perfo rmed. ? The Colonoscope was inserted in the ? anus and under direct visuali zation, ? advanced to the terminal ileu m. ? Careful inspection was made a s the ? colonoscope was withdrawn. Th e ? quality of the bowel preparat ion was ? good. The total duration of t he ? procedure was 25 minutes. The patient ? tolerated the procedure fairl y well. ? Findings: ? The perianal and digital rectal examinations were ? normal. The terminal ileum appeared normal. The ? entire examined colon appeared normal. The ? retroflexed view of the distal rectum was normal and ? showed no anal or rectal abnormalities. ? Impression: ?- The examined portion of the ileu m ? was normal. ? - The entire examined colon i s normal. Recommendation: ?- Repeat colonoscopy in 10 years for ? screening purposes. ? Joshua Rosas MD Signed Date: 10/13/2011 09:29:38 AM Number of Addenda: 0 ? Note initiated on 10/13/2011 08:39:32 AM Specimen (Source) Anatomical Collection Method Collection Time Re ceived Time Location / / Volume Laterality 10/13/2011 8:39 AM EST Unknown GENERAL SURGICAL ORDERABLES Performing Organization Address City/State/ZIP Code Phon e Number PROVATION documented in this encounter Visit Diagnoses Not on filedocumented in this encounter Administered Medications Inactive Administered Medications - up to 3 most recent administrations Medication Order MAR Action Action Date Dose Rate Site fentaNYL 50mcg/mL injection Given 10/13/2011 9:04 AM EST 50 mcg Right Arm ONCE PRN, Starting on Aixa 10/13/11 at 0855, Until Aixa 10/13/11 at 1048, Pain, Intra-Operative (Intra-Procedure), Routine Given 10/13/2011 9:01 AM EST 50 mcg Right Arm Given 10/13/2011 8:55 AM EST 100 mcg Right Arm midazolam (VERSED) injection Given 10/13/2011 9:10 AM EST 1 mg Right Arm ONCE PRN, Starting on Aixa 10/13/11 at 0858, Until Aixa 10/13/11 at 1048, Sleep, Intra-Operative (Intra-Procedure), Routine Given 10/13/2011 9:04 AM EST 1 mg Right Arm Given 10/13/2011 9:02 AM EST 1 mg Right Arm sodium chloride 0.9% infusion New Bag 10/13/2011 8:45 AM EST 50 mL/hr 50 mL/hr 50 mL/hr, Intravenous, CONTINUOUS, Starting on Aixa 10/13/11 at 0845, Until Aixa 10/13/11 at 1048, Endoscopy (Day of Procedure) documented in this encounter Active and Recently Administered Medications Times are shown in EST. Continuous Medication Order 10/11/2011 10/12/2011 10/13/2011 sodium chloride 0.9% infusion (CANCELED) 0845 (New Bag - Provider: Josselyn Pritchard RN) 50 mL/hr, at 50 mL/hr, Intravenous, CONT INUOUS, Starting Aixa 10/13/11 at 0845, Until Aixa 10/13/11 at 1048, Endo (Pre-Procedure) PRN Medication Order 10/11/2011 10/12/2011 10/13/2011 fentaNYL 50mcg/mL injection (CANCELED) 0855 (Given - Provider: Nany Paz RN - Comment: pt titrated for sedation and comfort)0901 (Given - Provider: Nany Paz RN - Comment: pt awake )0904 (Given - Provider: Nany Paz RN - Comment: c/o abd cramping) ONCE PRN, Starting Aixa 10/13/11 at 0855, Until Aixa 10/13/11 at 1048, Pain, Intra- Operative (Intra-Procedure), Routine midazolam (VERSED) injection (CANCELED) 0858 (Given - Provider: Nany Paz RN)0859 (Given - Provider: Nany Paz RN - Comment: increase sedation pt awake)0902 (Given - Provider: Nany Paz RN)0904 (Given - Provider: Nany Paz RN) ONCE PRN, Starting Aixa 10/13/11 at 0858, Until Aixa 10/13/11 at 1048, Sleep, Intra- Operative (Intra-Procedure), Routine 091 0 (Given - Provider: Nany Paz RN - Comment: c/o cramps) documented in this encounter Care Teams Telephone Services Sales Representative Relationship Specialty Start Date End Date Alison Clemons MD PCP - General 09/28/10 11/30/17 [address] [place] [address] documented as of this encounter
--- OUTSIDE RECORDS SUMMARY | 2022-10-07 01:34 | XMS_ITS | Encounter Summary ---
:1955 Author Organization [facility] [place] [address] Care Team Providers Name Role Phone Alison Clemons MD Primary Care Provider Encounter Details Date Type Department Care Team Description 10/13/2011 Hospital Encounter Mammography at [facility], DR [facility]RI[facility] Alison Tariq MD [address] [place] [address] [place] [address] Social History Tobacco Use Types Packs/Day [...] Office Visit Dermatology Keyshawn Morin MD [address] [facility] DERMATOLOGY [place], [place] [address] (Wo rk) documented as of this encounter Procedures Procedure Name Priority Date/Time Associated Diagnosis Comme nts MAMMO SCREENING CAD Routine 10/13/2011 11:08 AM R esults for this BILATERAL EST procedure are i n the results section. documented in this encounter Results MAMMO DIGITAL BILATERAL SCREENING WITH CAD (10/13/2011 11:08 AM EST) Anatomical Region Laterality Modality Breast Bilateral Mammography Specimen (Source) Anatomical Collection Method Collection Time Re ceived Time Location / / Volume Laterality 10/13/2011 11:08 AM EST Narrative 10/14/2011 9:53 AM EST Reason for Exam: Screening ?? [...] y the breast imaging center. Procedure Note Jes Salgado MD - 10/14/2011Format ting of this note might be different from [...] on filedocumented in this encounter Care Teams Database Development Project Manager Relationship Specialty Start Date End Date Alison Clemons MD PCP - General 09/28/10 11/30/17 [address] [place] [address] documented as of this encounter
--- OUTSIDE RECORDS SUMMARY | 2022-10-07 01:34 | XMS_ITS | Encounter Summary ---
:1955 Author Organization [facility] Address [address] [place] [address] Care Team Providers Name Role Phone Meseret Patel OMEGA Primary Care Provider Encounter Details Date Type Department Care Team Description 12/20/2019 Hospital Encounter Mammography/DXA at Meseret Patel , Encounter for [facility] screening mammogram [address] [place] [id number] [phone] Social History Tobacco Use Types Packs/Day Years Used Date Smoking Tobacco: Never Smokeless Tobacco: Never Sex Assigned at Date Recorded Not on file documented as of this encounter Medications at Time of Discharge Medication Sig Dispensed Refills Start Date End Date ascorbic acid, vitamin C, Take by mouth. 0 2012 (VITAMIN C) 1,000 mg Tablet Cranberry Extract 450 mg Take by mouth. 0 Tablet CIS Free Text Med - 0 11/30/2006 Calcium 600 with Vitamin D2 multivitamin (THERAGRAN) 0 11/30/2006 tablet losartan-hydrochlorothiaz 1 Tablet(s), PO, 0 11/07 jesusita (HYZAAR) 100-25 mg Once daily per tablet baclofen (LIORESAL) 5 mg TAKE ONE TABLET BY 0 01/04/2021 Tablet MOUTH THREE TIMES A DAY NEEDED FOR THIGH PAIN ZOLPIDEM TARTRATE (AMBIEN Take by mouth 0 01/04/2021 ORAL) nightly as needed. ibuprofen (ADVIL;MOTRIN) 800MG, PO, Three 0 11/3001/04/2021 800 mg tablet times daily PRN ascorbic acid (VITAMIN C) 0 11/30/2006 01/04/2021 1,000 mg tablet documented as of this encounter Plan of Treatment Upcoming Encounters Date Type Specialty Care Team Description 01/09/2023 Office Visit Dermatology Keyshawn Morin MD [address] DERMATOLOGY [place], [place] [address] (Wo rk) documented as of this encounter Procedures Procedure Name Priority Date/Time Associated Diagnosis Comme nts MAMMO SCREENING CAD Routine 12/20/2019 11:04 AM Encounter for Results for this AND JEWEL BILATERAL EST screening mammogram pr ocedure are in for breast cancer the result s section. documented in this encounter Results Mammo Screening Cad and Jewel Bilateral (12/20/2019 11:04 AM EST) Anatomical Region Laterality Modality Breast Bilateral Mammography Specimen (Source) Anatomical Location Collection Method / Collectio n Time Received Time / Laterality Volume Narrative 12/20/2019 11:08 AM EST BILATERAL MAMMOGRAPHY REASON FOR EXAM: Screening TECHNIQUE: CC and MLO views were obtaine d of each breast using standard 2-D mammography as well as 3-D tomosynthesis . Computer aided detection was used. Comparison: This is compared with prior images. FINDINGS: There are scattered areas of f ibroglandular density. There are no suspicious microcalcifications, masses, or areas of distortion. The pattern is stable. Stable bilateral benign-appearin g focal asymmetries. CONCLUSION: No mammographic evidence of malignancy. RECOMMENDATION: Routine screening. A result letter has been sent to this pa tietereza [facility]. BIRADS CATEGORY 2: Benign findings. * ??The [employer] an d The Society of Breast Imaging recommend annual screening beginning at age 40 for the general female population. * ??Screening should continue as long as a woman is in good health and is expected to live 10 more years or longer . * ??All women should be familiar with th e known benefits, limitations, and potential harms linked to breast cancer screening. They also should know how their breasts normally look and feel and report any breast changes to a health care provider right away. * ??Some women, because of their family history, a genetic tendency, or certain other factors, should be screened with M RIs along with mammograms. (The number of women who fall into this category is very small.) The patient and health care provider should discuss the patient hist ory and decide if earlier screening and breast MRI are appropriate. Thank you for letting us participate in the care of this patient. For questions regarding this report, please contact e number below. ? Meseret Patel APRN IMG MAMMO ORDERABLES documented in this encounter Visit Diagnoses Diagnosis Encounter for screening mammogram for br east cancer documented in this encounter Care Teams Batch Maker Relationship Specialty Start Date End Date Meseret Patel APRN PCP - General Family Medicine 12/07/[address] [place] [address] documented as of this encounter
--- OUTSIDE RECORDS SUMMARY | 2022-10-07 01:34 | XMS_ITS | Encounter Summary ---
:1955 Author Organization [facility] [place] [address] Care Team Providers Name Role Phone Meseret Patel APRN Primary Care Provider Reason for Visit Reason Comments Follow-up Skin Check Encounter Details Date Type Department Care Team Description 12/28/2018 Office Visit Dermatology at Keyshawn Morin, History of malignant melanoma; Derrick GUERRERO Nevus; [address] [facility] Seborrheic dermatitis [facility] B DERMATOLOGY [place], [place] [id number] [phone] Social History Tobacco Use Types Packs/Day Years Used Date Smoking Tobacco: Never Smokeless Tobacco: Never Sex Assigned at Date Recorded Not on file documented as of this encounter Progress Notes Keyshawn Morin MD - 12/28/2018 2:30 PM EST Problem: 1. Yearly skin checkup 2. History of malignant melanoma, February 1996, 0.5 mm Breslow depth, right inner thigh near the medial knee Rhina follows up after last seeing me in December of last year. She has been doing well. She has not noted any particular lesions of concern. Physical examination reveals a 63-year-old woman who has benign examination of the head and the neckthe chest the back the hands the arms forearms the thighs and the calves. She continues to have two solar lentigo's over the right cheek and two acral lentiginous nevi on the sole of her right foot unchanged from a photograph of 2004 inside the chart. There is no evidence of recurrent melanoma on the right inner thigh excision site near the knee. She has an area of mild eczematous dermatitis on the left lower occipital scalp just within the hairline where she tends to rub and scratch it when she is stressed. We discussed the option of treatment for this but she would like to defer Assessment plan: History of malignant melanoma 1. Patient reassured about his benign skin damage 2. Continue to wear discussion 3. Return to clinic in the year for recheck Solar lentigo's 1. Patient reassured about benign solar lentigo's 2. No treatment necessary CC: Meseret Patel APRN documented in this encounter Plan of Treatment Upcoming Encounters Date Type Specialty Care Team Description 01/09/2023 Office Visit Dermatology Keyshawn Morin MD [address] [place] [address] DERMATOLOGY [place], [place] [address] (Wo rk) documented as of this encounter Visit Diagnoses Diagnosis History of malignant melanoma Personal history of malignant melanoma o f skin Nevus Benign neoplasm of skin, site unspecifie d Seborrheic dermatitis Seborrheic dermatitis, unspecified documented in this encounter Care Teams Artificial Candy Maker Relationship Specialty Start Date End Date Meseret Patel APRN PCP - General Family Medicine 12/07/[address] [place] [address] documented as of this encounter
--- OUTSIDE RECORDS SUMMARY | 2022-10-07 01:34 | XMS_ITS | Encounter Summary ---
:1955 Author Organization [facility] [place] [address] Care Team Providers Name Role Phone Meseret Patel APRN Primary Care Provider Reason for Visit Reason Comments Annual Exam Encounter Details Date Type Department Care Team Description 01/03/2020 Office Visit Dermatology at Keyshawn Morin, History of malignant melanoma; Derrick GUERRERO Nevus; [address] [facility] Seborrheic dermatitis Mariano B DERMATOLOGY [place], [place] [id number] [phone] Social History Tobacco Use Types Packs/Day Years Used Date Smoking Tobacco: Never Smokeless Tobacco: Never Sex Assigned at Date Recorded Not on file documented as of this encounter Progress Notes Keyshawn Morin MD - 01/03/2020 1:45 PM EST Problem: 1. Yearly skin checkup 2. History of malignant melanoma, February 1996, 0.5 mm Breslow depth, right inner thigh near the medial knee Rhina follows up and has been doing well. I last saw her in December 10, 2018 and she is here for her yearly skin checkup. She is planning on retiring from her work the end of January and is looking forward to that very much. Physical examination reveals a pleasant 64-year-old woman who has a benign examination of the head and neck the chest the back the hands arms the forearms thighs and the calves. She continues to have 2solar lentigos on the right lateral cheek and 2 acral lentiginous nevi on the sole of her right foot unchanged from the photograph of 2004, present inside the chart. There is no evidence of recurrent melanoma on the right inner thigh which was excised 24 years ago. She has an area of seborrheic dermatitis/mild psoriasis on the lower occipital scalp just within the hairline which may indeed be from stress at work. Her upcoming [place] [facility] in January will certainly help this. She has erythema and some scaling of the left upper eyelid which would also be in the spectrum of psoriasis/seborrheic dermatitis. It is quite itchy. Assessment and plan: History of malignant melanoma 1. Patient reassured about her benign skin examination today 2. Continue sun avoidance precautions 3. Continue our once yearly skin checkups. 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 For left upper eyelid apply 1% hydrocortisone cream on a daily basis to clear. 2. For scalp involvement recommended alternating use of ketoconazole 2% shampoo use on a daily basisfor 2 weeks on and then switch and use second shampoo. Rinse out lather lather after 2 to 3 minutes dispense 120 mL's with 5 refills 3. For scalp involvement recommended alternating use of selenium sulfide 2.5% lotion apply to scalp to leave and reduce treatments as shampoo then rinse out. Use for 2 weeks on 2 weeks off alternating with ketoconazole shampoo dispense 120 mils with 5 refills. 4. I have asked patient to contact me if this is not effective. 5. Expect that [place] [facility] and decrease stress level will significantly benefit the improvement of this rash. Cc: Meseret Patel APRN documented in this encounter Plan of Treatment Upcoming Encounters Date Type Specialty Care Team Description 01/09/2023 Office Visit Dermatology Keyshawn Morin MD [address] [facility] DERMATOLOGY [place], [place] [address] (Wo rk) documented as of this encounter Visit Diagnoses Diagnosis History of malignant melanoma Personal history of malignant melanoma o f skin Nevus Benign neoplasm of skin, site unspecifie d Seborrheic dermatitis Seborrheic dermatitis, unspecified documented in this encounter Care Teams Internet Architect Relationship Specialty Start Date End Date Meseret Patel APRN PCP - General Family Medicine 12/07/[address] [facility] [address] [place] [address] documented as of this encounter
--- OUTSIDE RECORDS SUMMARY | 2022-10-07 01:34 | XMS_ITS | Encounter Summary ---
:1955 Author Organization [facility] Address [address] [place] [address] Care Team Providers Name Role Phone Meseret Patel OMEGA Primary Care Provider Encounter Details Date Type Department Care Team Description 12/07/2018 Hospital Encounter Mammography/DXA at Meseret Patel , Encounter for [facility] breast cancer [address] [place] [address] [phone] Social History Tobacco Use Types Packs/Day Years [...] Office Visit Dermatology Keyshawn Morin MD [address] DERMATOLOGY [place], [place] [address] (Wo rk) documented as of this encounter Procedures Procedure Name Priority Date/Time Associated Diagnosis Comme nts MAMMO SCREENING CAD Routine 12/07/2018 10:13 AM Encounter for breast Results for this AND JEWEL BILATERAL EST cancer screening proce dure are in other than mammogram the res ults section. documented in this encounter Results Mammo Screening Cad and Jewel Bilateral (12/07/2018 10:13 AM EST) Anatomical Region Laterality Modality Breast Bilateral Mammography Specimen (Source) Anatomical Location Collection Method / Collectio n Time Received Time / Laterality Volume Narrative 12/07/2018 10:21 AM EST BILATERAL MAMMOGRAPHY REASON FOR EXAM: [...] CONCLUSION: No mammographic evidence of malignancy. RECOMMENDATION: Medical organizations ag ree that annual screening mammography beginning at age 40 saves th e most lives. The risks of screening are negligible compared to dyi ng from breast cancer or suffering from more aggressive treatment required when detected at a later stage. No woman is at low risk for breast cancer. Some women, because of their family history, a genetic tendency, or c ertain other factors, should be screened with breast MRI along with mamm ograms. (The number of women who fall into this category is very small). The patient and health care provider should discuss the patient hist ory and decide if earlier screening and breast MRI are appropriate . Screening should continue as long as a woman is in good health and is expected to live 10 years or longer. Screening mammography may not de tect 10-15% of breast cancers. Women should report any breast changes t o a health care provider right away. A result letter has been sent to this rajendra mann by [facility]. BIRADS CATEGORY 1: NEGATIVE Meseret Adjovu TOLL MECHANIC IMG MAMMO ORDERABLES documented in this encounter Visit Diagnoses Diagnosis Encounter for breast cancer screening ot her than mammogram Breast screening, unspecified documented in this encounter Care Teams Header Setup Operator Relationship Specialty Start Date End Date Meseret Patel APRN PCP - General Family Medicine 12/07/[address] [place] [address] documented as of this encounter
--- OUTSIDE RECORDS SUMMARY | 2022-10-07 01:34 | XMS_ITS | Encounter Summary ---
:1955 Author Organization [facility] Address [facility] [place] [address] Care Team Providers Name Role Phone Clementine Pulido OMEGA Primary Care Provider Encounter Details Date Type Department Care Team Description 12/01/2017 Hospital Encounter Mammography [place] [facility] [place], Encounter for [facility] MD Alison screening mammogram [address] for breast cancer [place], [place], [address] [place] [address] Social History Tobacco Use Types Packs/Day Years [...] Keyshawn Morin MD [address] DERMATOLOGY [place], [place] [address] (Wo rk) documented as of this encounter Procedures Procedure Name Priority Date/Time Associated Diagnosis Comme nts MAMMO SCREENING CAD Routine 12/01/2017 9:26 AM Encounter for R esults for this AND JEWEL BILATERAL EST screening mammogram pr ocedure are in for breast cancer the result s section. documented in this encounter Results Mammo Screen CAD and Jewel Bilat (Generic) (12/01/2017 9:26 AM EST) Anatomical Region Laterality Modality Breast Bilateral Mammography Specimen (Source) Anatomical Location Collection Method / Collectio n Time Received Time / Laterality Volume Narrative 12/01/2017 9:55 AM EST BILATERAL MAMMOGRAPHY REASON FOR EXAM: [...] CONCLUSION: No mammographic evidence of malignancy. RECOMMENDATION: The [place] [employer] and The Society of Breast Imaging recommend annual screenin g beginning at age 40 for the general female population. Screening gifty uld continue as long as a woman is in good health and is expected to live 1 0 more years or longer. All women should be familiar with the known benefi ts, limitations, and potential harms linked to breast cancer screening. They should also know how their breasts normally look and feel and repor t any breast changes to a health care provider right away. Some women - b ecause of their family history, a genetic tendency, or certain other facto rs - should be screened with MRIs along with mammograms. (The number of wo men who fall into this category is very small.) The patient and health care provider should discuss the patient history and decide if earlier sc reening and breast MRI are appropriate. A result letter has been sent to this pa johnathan by the [facility]. BIRADS CATEGORY 1: NEGATIVE Alison Clemons MD IMG MAMMO ORDERABLES documented in this encounter Visit Diagnoses Diagnosis Encounter for screening mammogram for br east cancer documented in this encounter Care Teams Food Counter Attendant Relationship Specialty Start Date End Date Clementine Pulido, NETWORK SECURITY ADMINISTRATOR PCP - General Family Medicine 12/01/17 12/06/18 documented as of this encounter
--- OUTSIDE RECORDS SUMMARY | 2022-10-07 01:34 | XMS_ITS | Encounter Summary ---
:1955 Author Organization [facility] [place] [address] Care Team Providers Name Role Phone Alison Clemons MD Primary Care Provider Reason for Visit Reason Comments Annual Exam Encounter Details Date Type Department Care Team Description 10/21/2013 Office Visit Dermatology at Keyshawn Morin, History of malignant Derrick GUERRERO melanoma (Primary Dx) [address] Mariano B DERMATOLOGY [place], [place] [phone] Social History Tobacco Use Types Packs/Day Years Used Date Smoking Tobacco: Never Smokeless Tobacco: Never Sex Assigned at Date Recorded Not on file documented as of this encounter Progress Notes Keyshawn Morin MD - 10/21/2013 3:41 PM EST Problem List: 1. Yearly skin checkup. 2. History of malignant melanoma, February 1996, 0.54 mm, right inner thigh near medial knee. Rhina follows up and has been doing well. She is in a new relationship after four years being a and is very happy. He lives some distance in [place]. She is here for yearly skin checkup. Physical examination reveals a very pleasant 58-year-old woman who has a benign examination of the head and the neck, the chest, the back, hands, arms, forearms, thighs, and calves. She continues to have a 4 mm dark brown compound versus intradermal nevus on the mid occipital scalp centrally. There is no evidence of recurrent melanoma on the right inner thigh excision site. She continues to have two acral lentiginous nevi on the sole of her right foot, similarly sized as per her photograph from April of 2005. Assessment and Plan: 1. Benign skin examination. a. Patient reassured about benign skin examination. b. Continue sun avoidance precautions. c. Recommend I see her again in another year for repeat check. COPY: Alison Clemons M.D. documented in this encounter Plan of Treatment Upcoming Encounters Date Type Specialty Care Team Description 01/09/2023 Office Visit Dermatology Keyshawn Morin MD [address] [facility] DERMATOLOGY [place], [place] [address] (Wo rk) documented as of this encounter Visit Diagnoses Diagnosis History of malignant melanoma - Primary Personal history of malignant melanoma o f skin documented in this encounter Care Teams Assembler Fitter Relationship Specialty Start Date End Date Alison Clemons MD PCP - General 09/28/10 11/30/17 [address] [place] [address] documented as of this encounter
--- OUTSIDE RECORDS SUMMARY | 2022-10-07 01:34 | XMS_ITS | Encounter Summary ---
:1955 Author Organization [facility] [place] [address] Care Team Providers Name Role Phone Alison Clemons MD Primary Care Provider Reason for Visit Reason Comments Skin Check Encounter Details Date Type Department Care Team Description 10/05/2011 Office Visit Dermatology Keyshawn Morin, History of malignant melanom a (Primary Dx); [address] [facility] [address] [place] [address] [id number] [place] [address] [phone] (Wo rk) Social History Tobacco Use Types Packs/Day Years Used Date Smoking Tobacco: Never Sex Assigned at Date Recorded Not on file documented as of this encounter Progress Notes Keyshawn Morin MD - 10/05/2011 3:27 PM EST Problems: 1. Yearly skin checkup. 2. History of malignant melanoma, 02/1996, 0.54mm right inner thigh. Rhina follows up and has been doing well. She noticed some redness of the left upper eyelid, some laxity of the skin of both eyelids, and a red itchy patch within the lower occipital scalp. Physical examination reveals mild diffuse erythema of the left upper eyelid and a round patch of minimally scaling erythema on the lower occipital scalp appearing consistent with psoriasiform dermatitis probable seborrheic dermatitis. Otherwise careful examination of the head, neck, chest, back, hands, arms, forearms, thighs and claves is benign. She continues to have a 4mm dark brown compound versus intradermal nevus on the mid to lower occipital scalp centrally. There is no evidence of recurrent malignant melanoma on the right inner thigh excision site. She has two acral lentiginous nevi on the sole of her right foot similarly sized as per the photograph from 04/2005. Otherwise examination today is benign. Assessment & Plan: Benign skin examination. a. Patient reassured about benign skin examination. b. RTC in one year for repeat check. c. Continue sun avoidance precautions. History of malignant melanoma, 02/1996, 0.54mm right inner thigh. a. No evidence of recurrence. b. Patient reassured. Seborrheic dermatitis. a. Recommended trial of tar shampoo such as Carrion or [facility] generic product, allow to sit in scalp for 2-3 minutes before rinsing out. Also apply to face. b. Would also recommend a trial of 1% Hydrocortisone Cream to use instead of Aquaphor for itching and redness about left upper eyelid. Copy: Alison Clemons MD RTC REMINDER: One Year documented in this encounter Plan of Treatment Upcoming Encounters Date Type Specialty Care Team Description 01/09/2023 Office Visit Dermatology Keyshawn Morin MD [address] [facility] DERMATOLOGY [place], [place] [address] (Wo rk) documented as of this encounter Visit Diagnoses Diagnosis History of malignant melanoma - Primary Personal history of malignant melanoma o f skin Nevus Benign neoplasm of skin, site unspecifie d documented in this encounter Care Teams Direct Chill Casting Operator Relationship Specialty Start Date End Date Alison Clemons MD PCP - General 09/28/10 11/30/17 [address] [place] [address] documented as of this encounter
--- OUTSIDE RECORDS SUMMARY | 2022-10-07 01:34 | XMS_ITS | Encounter Summary ---
:1955 Author Organization [facility] Address [facility] [place] [address] Care Team Providers Name Role Phone Meseret Patel OMEGA Primary Care Provider Encounter Details Date Type Department Care Team Description 12/21/2020 Hospital Encounter Mammography/DXA at Meseret Patel , Encounter for [facility] screening mammogram [facility] [address] [place] [address] [phone] Social History Tobacco Use Types Packs/Day Years Used Date Smoking Tobacco: Never Smokeless Tobacco: Never Sex Assigned at Date Recorded Not on file documented as of this encounter Medications at Time of Discharge Medication Sig Dispensed Refills Start Date End Date ascorbic acid, vitamin Take by mouth. 0 3 C, (VITAMIN C) 1,000 mg Tablet ketoconazole (NIZORAL) Use on a daily basis 120 mL 0 2 % Shampoo for 2 wks and then switch to selenium sulfide 2.5% lotion. Rinse out lather after 2-3 min. Cranberry Extract 450 Take by mouth. 0 mg Tablet CIS Free Text Med - 0 11/30/2006 Calcium 600 with Vitamin D2 multivitamin 0 11/30/2006 (THERAGRAN) tablet losartan-hydrochlorothi 1 Tablet(s), PO, Once 0 0 11/30/2006 azide (HYZAAR) 100-25 daily mg per tablet selenium sulfide 2.5 % APPLY TO AFFECTED AREA 120 mL 5 0 07/09/2020 01/04/2021 Lotion AND RINSE AFTER 2-3 MINUTES. USE DAILY FOR 2 WEEKS SWITCHING WITH KETOCONAZOLE 2% SHAMPOO baclofen (LIORESAL) 5 TAKE ONE TABLET BY 0 201801/04/2021 mg Tablet MOUTH THREE TIMES A DAY NEEDED FOR THIGH PAIN ZOLPIDEM TARTRATE Take by mouth nightly 0 01/04/2021 (AMBIEN ORAL) as needed. ibuprofen 800MG, PO, Three times 0 11/30/2006 (ADVIL;MOTRIN) 800 mg daily PRN tablet ascorbic acid (VITAMIN 0 11/30/2006 C) 1,000 mg tablet documented as of this encounter Plan of Treatment Upcoming Encounters Date Type Specialty Care Team Description 01/09/2023 Office Visit Dermatology Keyshawn Morin MD [address] [facility] DERMATOLOGY [place], [place] [address] (Wo rk) documented as of this encounter Procedures Procedure Name Priority Date/Time Associated Diagnosis Comme nts MAMMO SCREENING CAD Routine 12/21/2020 10:43 AM Encounter for Results for this AND JEWEL BILATERAL EST screening mammogram pr ocedure are in for breast cancer the result s section. documented in this encounter Results Mammo Screening Cad and Jewel Bilateral (12/21/2020 10:43 AM EST) Anatomical Region Laterality Modality Breast Bilateral Mammography Specimen (Source) Anatomical Location Collection Method / Collectio n Time Received Time / Laterality Volume Narrative 12/21/2020 10:53 AM EST BILATERAL MAMMOGRAPHY REASON FOR EXAM: Screening TECHNIQUE: CC and MLO views were obtaine d of each breast using standard 2-D mammography as well as 3-D tomosynth esis. Computer aided detection was used. This is compared with prior images . FINDINGS: ??The breasts are almost entir riya fatty. There are no suspicious microcalcifications, masses, or [...] cancer documented in this encounter Care Teams Seed Laboratory Technician Relationship Specialty Start Date End Date Meseret Patel APRN PCP - General Family Medicine 12/07/18 [address] [facility] [facility] [address] [place] [address] documented as of this encounter
--- OUTSIDE RECORDS SUMMARY | 2022-10-07 01:34 | XMS_ITS | Encounter Summary ---
:1955 Author Organization [facility] [address] Care Team Providers Name Role Phone Alison Clemons MD Primary Care Provider Encounter Details Date Type Department Care Team Description 09/25/2014 Hospital Encounter Laboratory Keyshawn Howard MD [address] [place] [address] [place] [address] [phone] (Wo rk) Social History Tobacco Use Types [...] Team Description 01/09/2023 Office Visit Dermatology Keyshawn Howard MD [address] [facility] DERMATOLOGY [place], [place] [address] (Wo rk) documented as of this encounter Procedures Procedure Name Priority Date/Time Associated Diagnosis Comme [facility] SURGICAL PATHOLOGY Routine 09/25/2014 12:00 PM Re sults for this REPORT EST procedure are i n the results section. documented in this encounter Results Surgical Pathology Report (09/25/2014 12:00 PM EST) Component Value Ref Test Analysis Performed At [facility] Range Method Time Signature Surgical CERNER Pathology ? [facility] Report ? Provider: ?? KEYSHAWN HOWARD ?? Pt. Name: ?? ELIEL SKYITH Eleazar ? Acc #: ?[id number] ? Pt. ? Col Date: ?? 09/25/20 14 ?/Sex: ?1955,(59 years),Female ? Rec Date: ?? 09/26/2014 ?LOC: ?OPW ? SURGICAL PATHOLOGY ? ---Pathologic Diagnosis--- ? Skin, right lateral arm, shave biopsy: ?Compound nevus with mild mich ctional atypia, features of congenital ? onset, traumatized, abutting a peripheral specimen ed ge. ? CR-0 ? 09/29/14 ? BJM ? 09/29/14 Verified by: ? Manuelito GUERRERO, PhD, Josie ? Dermatopatholo gist ? (Electronic Si gnature) ? The attending pathologist whose signature appears o n this report has ? reviewed all diagnostic slides and has edited the rasheeda ss and/or ? microscopic portion of the report in rendering the fi nal pathologic ? diagnosis. ? ---Gross Description--- ? A - Labeled/Fixative: Patient demographics, formalin. ? Quantity/Size: Single, 1.6 x 1.2 x 0.1 cm. ? Tissue Description: Shave of jameson- white skin with a central 0.7 x 0.6 cm ? rubbery, jameson-brown papule. ? Sections/Processing: The specimen is inked and serial ly sectioned. ? The ends are submitted in (1); the remainder in (2). (T2) ??ejr ? ---Clinical Information--- ? Specimen Submitted: ? A - Right lateral arm, shave ? Clinical History: ? Bleeding nevus in patient with past history of MM ? Clinical Diagnosis: ? Irritated nevus, rule out MM Specimen (Source) Anatomical Collection Method Collection Time Re ceived Time Location / / Volume Laterality 09/25/2014 12:00 PM EST Keyshawn Howard MD PATHOLOGY/CYTOLOGY ORDERABLE S Performing Organization Address City/State/ZIP Code Phon e Number [address] [facility] documented in this encounter Visit Diagnoses Not on filedocumented in this encounter Care Teams Telephone Clerk Telegraph Office Relationship Specialty Start Date End Date Alison Clemons MD PCP - General 09/28/10 11/30/17 [address] [place] [address] documented as of this encounter
--- OUTSIDE RECORDS SUMMARY | 2022-10-07 01:34 | XMS_ITS | Encounter Summary ---
:1955 Author Organization [facility] [place] [address] Care Team Providers Name Role Phone Alison Clemons MD Primary Care Provider Encounter Details Date Type Department Care Team Description 04/22/2011 Hospital En[place] [address] Social History Tobacco Use Types Packs/Day [...] (HYZAAR) 100-25 mg per Once daily tablet CIS Free Text Med - 90MC-2 Puff(s), 0 007 10/09/2012 Albuterol Inh, Four times daily PRN ibuprofen (ADVIL;MOTRIN) 800MG, PO, Three 0 11/3001/04/2021 800 mg tablet times daily PRN ascorbic acid (VITAMIN C) 0 11/30/2006 01/04/2021 1,000 mg tablet documented as of this encounter Plan of Treatment Upcoming Encounters Date Type Specialty Care Team Description 01/09/2023 Office Visit Dermatology Keyshawn Morin MD [address] [place] [address] DERMATOLOGY [place], [place] [address] (Wo rk) documented as of this encounter Procedures Procedure Name Priority Date/Time Associated Diagnosis Comme nts MAMMO BREAST US Routine 04/22/2011 10:30 AM Resul ts for this LIMITED EDT procedure are i n the results section. documented in this encounter Results MAMMO BREAST US UNILATERAL BILATERAL (04/22/2011 10:30 AM EDT) Anatomical Region Laterality Modality Breast N/A Mammography Specimen (Source) Anatomical Collection Method Collection Time Re ceived Time Location / / Volume Laterality 04/22/2011 10:30 AM EDT Narrative 04/22/2011 12:47 PM EDT UNILATERAL RIGHT MAMMOGRAM AND RIGHT ANURAG AST ULTRASOUND ON 04/22/11: ?? CLINICAL INDICATION: Six-month follow-up Right mammogram and ultrasound following benign ultrasound guided biops y of the Right breast for a Right breast mass at 1000. Pathology: dense st romal fibrosis; concordant result. ?? TECHNIQUE: Right CC, Right MLO and RXCC lateral views were obtained with direct digital capture as well as a Right breas t ultrasound. ?? FINDINGS: This is a (BIRADS Category 1) NEGATIVE Right mammogram. There is an unremarkable fibroglandular pattern in t he Right breast, stable compared to prior studies. There is no mammographic evidence of cancer. Specifically, the previously seen Right breast mass is no longer evident. Biopsy marker clip is shown to be 1cm from the biopsy site in the superficial direction on the mammogram. ? Directed ultrasound to the post-biopsy s ite at 1000, 3cm from the nipple demonstrates normal fibroglandular tissu e with no cyst or solid lesion identified. ?? CONCLUSION: ? This is a (BIRADS Category 1) NEGATIVE R ight mammogram and Right breast ultrasound. The next Right mammogram is recommended at the time of the patient's bilateral annual mammogram in 10/16. ? Findings discussed with the patient who concurs. Procedure Note Melinda Alatorre MD - 1 UNILATERAL RIGHT MAMMOGRAM AND RIGHT ANURAG AST ULTRASOUND ON 04/22/11: CLINICAL INDICATION: Six-month follow-up Right mammogram and ultrasound following benign ultrasound guided biops y of the Right breast for a Right breast mass at 1000. Pathology: dense st romal fibrosis; concordant result. TECHNIQUE: Right CC, Right MLO and RXCC lateral views were obtained with direct digital capture as well as a Right breas t ultrasound. FINDINGS: This is a (BIRADS Category 1) NEGATIVE Right mammogram. There is an unremarkable fibroglandular pattern in t he Right breast, stable compared to prior studies. There is no mammographic evidence of cancer. Specifically, the previously seen Right breast mass is no longer evident. Biopsy marker clip is shown to be 1cm from the biopsy site in the superficial direction on the mammogram. Directed ultrasound to the post-biopsy s ite at 1000, 3cm from the nipple demonstrates normal fibroglandular tissu e with no cyst or solid lesion identified. CONCLUSION: This is a (BIRADS Category 1) NEGATIVE R ight mammogram and Right breast ultrasound. The next Right mammogram is recommended at the time of the patient's bilateral annual mammogram in 10/16. Findings discussed with the patient who concurs. Alison Clemons MD IMG MAMMO ORDERABLES documented in this encounter Visit Diagnoses Not on filedocumented in this encounter Care Teams Fleece Tier Relationship Specialty Start Date End Date Alison Clemons MD PCP - General 09/28/10 11/30/17 [address] [place] [address] documented as of this encounter
--- OUTSIDE RECORDS SUMMARY | 2022-10-07 01:34 | XMS_ITS | Encounter Summary ---
:1955 Author Organization [facility] [place] [address] Care Team Providers Name Role Phone Clementine Pulido OMEGA Primary Care Provider Reason for Visit Reason Comments Follow-up Skin Check Encounter Details Date Type Department Care Team Description 12/08/2017 Office Visit Dermatology at Keyshawn Morin, History of malignant melanoma; Derrick GUERRERO Nevus; [address] [facility] Seborrheic dermatitis Mariano B DERMATOLOGY [place], [place] [id number] [phone] Social History Tobacco Use Types Packs/Day Years Used Date Smoking Tobacco: Never Smokeless Tobacco: Never Sex Assigned at Date Recorded Not on file documented as of this encounter Progress Notes Keyshawn Morin MD - 12/08/2017 3:30 PM EST Problem: 1. Yearly skin checkup 2. History of malignant melanoma, February 1996, 0.5 mm Breslow depth, right inner thigh near the medial knee Rhina returns to see me after last being seen in October 2016. Unfortunately she lost her significant other in the meantime and has been grieving greatly but coping quite well. She would like me to do a general skin checkup today Physical examination is a pleasant 62-year-old woman who has a benign examination of the head and neck the chest the back hands arms and forearms thighs and the calves. She continues to have 2 solar lentigo goes over the right cheek and 2 acral lentiginous nevi on the sole of her right foot unchanged from the photograph from April 20202004. There is no evidence of recurrent melanoma on the right inner thigh excision site. He has some mild erythema in the nape of the neck some mild erythema of the left upper eye lid. Assessment plan: Seborrheic dermatitis 1. Likely related to significant grieving and stress the patient and going through over the last year. The dermatitis began in July but is much much improved now. 2. Could consider hydrocortisone 1% cream should he begin to become itchy and irritated on the upperleft upper eyelid. 3. Discussed possible contact etiology but really nothing upon careful history taking would seem to explain this and there is really no new products that she is using. Her daytime work is using pencilspaper pens and computers but no chemicals. History of malignant melanoma 1. Benign examination 2. Continue sun avoidance precautions 3. Return to clinic in 1 year. Cc: Clementine Pulido APRN documented in this encounter Plan of Treatment Upcoming Encounters Date Type Specialty Care Team Description 01/09/2023 Office Visit Dermatology Keyshawn Morin MD [address] [place] [address] DERMATOLOGY [place], [place] [address] (Wo rk) documented as of this encounter Visit Diagnoses Diagnosis History of malignant melanoma Personal history of malignant melanoma o f skin Nevus Benign neoplasm of skin, site unspecifie d Seborrheic dermatitis Seborrheic dermatitis, unspecified documented in this encounter Care Teams Therapy Director Relationship Specialty Start Date End Date Clementine Pulido APRN PCP - General Family Medicine 12/01/17 12/06/18 documented as of this encounter
--- OUTSIDE RECORDS SUMMARY | 2022-10-07 01:34 | XMS_ITS | Encounter Summary ---
:1955 Author Organization [facility] Address [facility] [place] [address] Care Team Providers Name Role Phone Alison Clemons MD Primary Care Provider Encounter Details Date Type Department Care Team Description 10/23/2015 Hospital Encounter Mammography at [facility] [place] [place], Encounter for [facility] MD Alison screening mammogram Drive [address] for breast cancer [place], [place], [address] [place] [id number] Social History Tobacco Use Types Packs/Day Years Used Date Smoking Tobacco: Never Smokeless Tobacco: Never Sex Assigned at Date Recorded Not on file documented as of this encounter Medications at Time of Discharge Medication Sig Dispensed Refills Start Date End Date ascorbic acid, vitamin C, Take by mouth. 0 02/09 (VITAMIN C) 1,000 mg Tablet Cranberry Extract [...] Morin MD [address] [address] DERMATOLOGY [place], [place] [address] (Wo rk) documented as of this encounter Procedures Procedure Name Priority Date/Time Associated Diagnosis Comme nts MAMMO SCREENING CAD Routine 10/23/2015 8:56 AM Encounter for R esults for this AND BEULAH BILATERAL EST screening mammogram pr ocedure are in for breast cancer the result s section. documented in this encounter Results Mammo Digital Bilateral Screening With CAD and Tomosynthesis (10/23/2015 8:56 AM EST) Anatomical Region Laterality Modality Breast Bilateral Mammography Specimen (Source) Anatomical Location Collection Method / Collectio n Time Received Time / Laterality Volume Narrative 10/23/2015 11:08 AM EST BILATERAL MAMMOGRAPHY REASON FOR [...] No mammographic evidence of malignancy. RECOMMENDATION: The [employer] and The Society of [...] cancer documented in this encounter Care Teams Bowling Ball Patcher Relationship Specialty Start Date End Date Alison Clemons MD PCP - General 09/28/10 11/30/17 [address] [place] [address] documented as of this encounter
--- OUTSIDE RECORDS SUMMARY | 2022-10-07 01:34 | XMS_ITS | Encounter Summary ---
:1955 Author Organization [employer] [facility] [employer] Address [facility] [place] [address] Care Team Providers Name Role Phone Alison Clemons MD Primary Care Provider Encounter Details Date Type Department Care Team Description 11/25/2016 Hospital Encounter [place] [facility] Visit for screening [facility] MD Alison mammogram Drive [facility] [address] [place], [place], [address] [place] [id number] Social History Tobacco Use Types Packs/Day Years [...] Office Visit Dermatology Keyshawn Morin MD [address] [facility] [facility] [address] DERMATOLOGY [place], [place] [address] (Wo rk) documented as of this encounter Procedures Procedure Name Priority Date/Time Associated Diagnosis Comme nts MAMMO SCREENING CAD Routine 11/25/2016 10:09 AM Visit for scre ening Results for this AND JEWEL BILATERAL EST mammogram procedure are in the results section. documented in this encounter Results Mammo Screen CAD and Jewel Bilat (Generic) (11/25/2016 10:09 AM EST) Anatomical Region Laterality Modality Breast Bilateral Mammography Specimen (Source) Anatomical Location Collection Method / Collectio n Time Received Time / Laterality Volume Narrative 11/25/2016 10:41 AM EST BILATERAL MAMMOGRAPHY REASON FOR EXAM: [...] No mammographic evidence of malignancy. RECOMMENDATION: The [place] [employer] and The Society of [...] documented in this encounter Visit Diagnoses Diagnosis Visit for screening mammogram Other screening mammogram documented in this encounter Care Teams Wallpaper Cleaner Relationship Specialty Start Date End Date Alison Clemons MD PCP - General 09/28/10 11/30/17 [address] [place] [address] documented as of this encounter
--- OUTSIDE RECORDS SUMMARY | 2022-10-07 01:34 | XMS_ITS | Encounter Summary ---
:1955 Author Organization [facility] [place] [address] Care Team Providers Name Role Phone Alison Clemons MD Primary Care Provider Reason for Visit Reason Comments Follow-up annual check Encounter Details Date Type Department Care Team Description 10/28/2016 Office Visit Dermatology at Keyshawn Morin, History of malignant melanoma; Derrick GUERRERO Nevus [address] [facility] Mariano B DERMATOLOGY [place], [place] [id number] [phone] Social History Tobacco Use Types Packs/Day Years Used Date Smoking Tobacco: Never Smokeless Tobacco: Never Sex Assigned at Date Recorded Not on file documented as of this encounter Progress Notes Keyshawn Morin MD - 10/28/2016 2:30 PM EST PROBLEM: 1. Yearly skin checkup. 2. History of malignant melanoma, 02/1996, 0.5 mm Breslow depth, right inner thigh near medial knee. Rhina follows up after last being seen in 09/2015. She has been doing well. She would like me to check some moles below her left knee. Physical examination reveals a pleasant 61-year-old woman who has a benign examination of the head and the neck, the chest, the back, hands, arms, forearms, thighs and the calves. She has 2 solar lentigos over the right cheek. She continues to have 2 acrolentiginous nevi on the sole of her right foot, similarly sized as per the photograph from 04/2005. Examination of the head and the neck, the chest, the back, hands, thighs and calves is benign. There is no evidence of recurrent melanoma on the right inner thigh excision site. A/P: 1. Benign skin examination. a. Patient reassured about benign skin examination. b. Continue sun avoidance precautions. c. Patient desires to continue yearly skin checkups, which I think it would be palacios. 2. History of malignant melanoma. a. No evidence of recurrence. Patient reassured. Return to clinic reminder in 1 year. CC: [facility] documented in this encounter Plan of Treatment Upcoming Encounters Date Type Specialty Care Team Description 01/09/2023 Office Visit Dermatology Keyshawn Morin MD [address] [place] [address] DERMATOLOGY [place], [place] [address] (Wo rk) documented as of this encounter Visit Diagnoses Diagnosis History of malignant melanoma Personal history of malignant melanoma o f skin Nevus Benign neoplasm of skin, site unspecifie d documented in this encounter Care Teams Wire Spooler Relationship Specialty Start Date End Date Alison Clemons MD PCP - General 09/28/10 11/30/17 [address] [place] [address] documented as of this encounter
--- OUTSIDE RECORDS SUMMARY | 2022-10-07 01:34 | XMS_ITS | Encounter Summary ---
:1955 Author Organization [place] [address] Care Team Providers Name Role Phone Meseret Ptael APRN Primary Care Provider Reason for Visit Reason Comments Medication Refill Encounter Details Date Type Department Care Team Description 07/08/2020 Refill Dermatology at [facility] Keyshawn Morin MD [address] [facility] [address] [place] [address] DERMATOLOGY [phone] [place], [place] [address] (Wo rk) Social History Tobacco Use Types Packs/Day Years Used Date Smoking Tobacco: Never Smokeless Tobacco: Never Sex Assigned at Date Recorded Not on file documented as of this encounter Plan of Treatment Upcoming Encounters Date Type Specialty Care Team Description 01/09/2023 Office Visit Dermatology Keyshawn Morin MD [address] [facility] DERMATOLOGY [place], [place] [address] (Wo rk) documented as of this encounter Visit Diagnoses Not on filedocumented in this encounter Care Teams Machinist First Class Relationship Specialty Start Date End Date Meseret Patel APRN PCP - General Family Medicine 12/07/[address] [place] [address] documented as of this encounter
--- OUTSIDE RECORDS SUMMARY | 2022-10-07 01:34 | XMS_ITS | Encounter Summary ---
:1955 Author Organization [facility] [place] [address] Care Team Providers Name Role Phone Meseret Patel APRN Primary Care Provider Reason for Visit Reason Comments Annual Exam Encounter Details Date Type Department Care Team Description 01/06/2022 Office Visit Dermatology at Keyshawn Morin, History of malignant melanoma; Derrick GUERRERO Nevus; [address] [facility] Seborrheic dermatitis Mariano B DERMATOLOGY [place], [place] [id number] [phone] Social History Tobacco Use Types Packs/Day Years Used Date Smoking Tobacco: Never Smokeless Tobacco: Never Sex Assigned at Date Recorded Not on file documented as of this encounter Progress Notes Keyshawn Morin MD - 01/06/2022 10:00 AM EST Problem: 1. ??Yearly skin checkup 2. ??History of malignant melanoma, February 1996, 0.5 mm Breslow depth, right inner thigh near the medial knee ?? Rhina follows up and is now 66. She has been doing well. She is walking exercising at least 5 miles aday on her treadmill, in the summer walking out of doors. She is lost 15 pounds. She is remodeling the upstairs of her house and is very excited about her progress there Physical examination reveals a pleasant 66 woman who has benign examination of the parietal scalp the face and neck chest back hands arms forearms thighs and calves. She is a well-healed scar at the melanoma excision site without any evidence of recurrence. She has a number of solar lentigos on the anterior shins that are developing into seborrheic keratoses. Assessment and plan: Benign skin examination patient with a history of malignant melanoma 1. No evidence of recurrence 2. Patient reassured 3. Continue our once yearly skin checkups 4. Continue sun avoidance precautions. 5. Return to clinic in 1 year. CC: Meseret Patel APRN documented in this encounter Plan of Treatment Upcoming Encounters Date Type Specialty Care Team Description 01/09/2023 Office Visit Dermatology Keyshawn Morin MD [address] [facility] DERMATOLOGY [place], [place] [address] (Wo rk) documented as of this encounter Visit Diagnoses Diagnosis History of malignant melanoma Personal history of malignant melanoma o f skin Nevus Benign neoplasm of skin, site unspecifie d Seborrheic dermatitis Seborrheic dermatitis, unspecified documented in this encounter Care Teams Duct Layer Supervisor Relationship Specialty Start Date End Date Meseret Patel APRN PCP - General Family Medicine 12/07/[address] [place] [address] documented as of this encounter
--- OUTSIDE RECORDS SUMMARY | 2022-10-07 01:34 | XMS_ITS | Encounter Summary ---
:1955 Author Organization [facility] [place] [address] Care Team Providers Name Role Phone Alison Clemons MD Primary Care Provider Reason for Visit Reason Comments Skin Check Encounter Details Date Type Department Care Team Description 09/25/2015 [facility] of malignant melanoma; Derrick GUERRERO Nevus [address] [facility] Mariano B DERMATOLOGY [place], [place] [id number] [phone] Social History Tobacco Use Types Packs/Day Years Used Date Smoking Tobacco: Never Smokeless Tobacco: Never Sex Assigned at Date Recorded Not on file documented as of this encounter Patient Instructions Patient InstructionsStephanie Mcclure LPN - 09/25/2015 1:34 PM EST Images from the original note were not included. [facility] Moles: After Your Visit Your Care Instructions Moles are skin growths made up of cells that produce color (pigment). A mole can appear anywhere on the skin, alone or in groups. Most people get a few moles during their first 20 years of life. They are usually brown in color but can be blue, black, or flesh-colored. Most moles are harmless and do not cause pain or other symptoms, unless you rub them or they bump against something. You usually do not need treatment for moles. But some can turn into cancer. Talk to your doctor if amole bleeds, itches, brito, or changes size or color. Also let your doctor know if you get a new mole. Make sure to wear sunscreen and other sun protection every day to help prevent skin cancer. Follow-up care is a thomas part of your treatment and safety. Be sure to make and go to all appointments, and call your doctor if you are having problems. It???s also a good idea to know your test resultsand keep a list of the medicines you take. How can you care for yourself at home? ?? Check all the skin on your body once a month for skin growths or other changes, such as in the color and feel of the skin. ?? liner inserter front of a full-length mirror. Look carefully at the front and back of your body. Then look at your right and left sides with your arms raised. ?? Bend your elbows and look carefully at your forearms, the back of your upper arms, and your palms. ?? Look at your feet, the bottoms of your feet, and the spaces between your toes. ?? Use a hand mirror to look at the back of your legs, the back of your neck, and your back, rear end (buttocks), and genital area. Part the hair on your head to look at your scalp. ?? If you see a change in a skin growth, contact your doctor. Look for: ?? A mole that bleeds. ?? A fast-growing mole. ?? A scaly or crusted growth on the skin. ?? A sore that will not heal. To prevent skin cancer ?? Always wear sunscreen on exposed skin. Make sure the sunscreen blocks ultraviolet rays (both UVA and UVB) and has a sun protection factor (SPF) of at least 15. Use it every day, even when it is cloudy. Some doctors may recommend a higher SPF, such as 30. ?? Wear a wide-brimmed hat and long sleeves and pants if you are going to be outdoors for very long. ?? Avoid the sun between 10 a.m. and 4 p.m., which is the peak time for the sun's ultraviolet rays. ?? Avoid sunburns, tanning booths, and sunlamps. ?? Be sure to protect children from the sun. Sunburns in childhood damage the skin and increase the risk of cancer. When should you call for help? Watch closely for changes in your health, and be sure to contact your doctor if: ?? A mole looks different than it did before. It may have changed in size, color, shape, or the way it looks. ?? You have a new mole. ?? You have a new pimple or skin growth that does not go away. Where can you learn more? Visit our health information library at [email or web address] You can also view health information on [employer], your personal patient account. Log in or sign up today. Enter M489 in the search box to learn more about Moles: After Your Visit. ?? [id number] [employer]. Care instructions adapted under license by [facility]. This care instruction is for use with your licensed healthcare professional. If you have questionsabout a medical condition or this instruction, always ask your healthcare professional. [employer] disclaims any warranty or liability for your use of this information. Content Version: 10.4.267436; Current as of: January 15, 2014 documented in this encounter Progress Notes Keyshawn Morin MD - 09/25/2015 1:34 PM EST Problems: 1. Yearly skin checkup. 2. History of malignant melanoma, February 1996, 0.54-mm Breslow depth, right inner thigh near medial knee. Rhina follows up after last being seen in September 2014. She has been doing well. She has noted a new mole on the right upper chest. She would like me to check that. Physical examination reveals a pleasant, now 60-year-old woman who has benign-appearing melanocytic nevi on the back, chest, arms, and two solar lentigos over the right cheek. She continues to have two acral lentiginous nevi on the sole of the right foot, similarly sized as per the photograph from April 2005. Examination of the head and neck, chest, back, hands, arms, forearms, thighs, and calves is benign. There is no evidence of recurrent melanoma on the right inner thigh excision site. Assessment and Plan: 1. Benign skin examination. a. Patient reassured about benign skin examination. b. Continue sun avoidance precautions. c. The patient desires to continue yearly skin checkups, which I think would be palacios. 2. History of malignant melanoma. a. No evidence of recurrence. b. Patient reassured. c. Return to clinic in one year. COPY: Alison Clemons M.D. documented in this encounter Plan of Treatment Upcoming Encounters Date Type Specialty Care Team Description 01/09/2023 Office Visit Dermatology Keyshawn Morin MD [address] [place] [address] DERMATOLOGY [place], [place] [address] (Wo rk) documented as of this encounter Visit Diagnoses Diagnosis History of malignant melanoma Personal history of malignant melanoma o f skin Nevus Benign neoplasm of skin, site unspecifie d documented in this encounter Care Teams Bull Gang Worker Relationship Specialty Start Date End Date Alison Clemons MD PCP - General 09/28/10 11/30/17 [address] [place] [address] documented as of this encounter
--- OUTSIDE RECORDS SUMMARY | 2022-10-07 01:34 | XMS_ITS | Encounter Summary ---
:1955 Author Organization [facility] [place] [address] Care Team Providers Name Role Phone Alison Clemons MD Primary Care Provider Encounter Details Date Type Department Care Team Description 10/13/2011 Hospital Encounter Gastroenterology at [facility] Joshua Rosas, [facility] [place] [address] [facility] [phone] GASTROENTEROLOGY DEPT. [place], [place] [address] Social History Tobacco Use Types [...] - 10/13/2011 9:27 AM EST Please call [phone], before 5pm with problems, questions or concerns, after 5pm call the Hospital at [phone] and ask to speak to the Ux Designer industrial conveyor belt repairer and the brownell operator will contact that person for you. Discharge instructions reviewed with patient who expresses understanding. Patient InstructionsJoshua Rosas MD - 10/13/2011 9:36 AM EST Please see Recommendations in the Provation procedure report which is documented in the procedural note in E-DH. AttachmentsThe following attachments cannot be sent through Care Everywhere. COLONOSCOPY: WHAT TO EXPECT AT HOME (TAJIK)documented in this encounter Medications at Time of [...] report located in the Procedures tab in eD. documented in this encounter Miscellaneous Notes Miscellaneous - Provider, Scanning - 10/13/2011 9:24 PM EST Miscellaneous - Provider, Scanning - 10/13/2011 9:33 AM EST Op Note - Joshua Rosas MD - 10/13/2011 9:29 AM EST [facility] Operative Note Patient Name: Melinda Sky : [id number] MR#: [id number] Case Date: 10/13/2011 Surgeon: Surgeon(s) and Role: * JOSHUA ROSAS MD - Primary Preoperative diagnosis: 10YR SCREENING Postoperative diagnosis: * No post-op diagnosis entered * Procedure(s): COLONOSCOPY, DIAGNOSTIC Please see Procedure note. documented in this encounter Plan of Treatment Upcoming Encounters Date Type Specialty Care Team Description 01/09/2023 Office Visit Dermatology Keyshawn Morin MD [address] [facility] DERMATOLOGY [place], [place] [address] (Wo rk) documented as of this encounter Procedures Procedure Name Priority Date/Time Associated Comments Diagnosis COLONOSCOPY, 10/13/2011 8:53 AM 10YR SCREENING DIAGNOSTIC EST COLONOSCOPY Routine 10/13/2011 8:39 AM Results f or this EST procedure are i n the results section. documented in this encounter Results COLONOSCOPY (10/13/2011 8:39 AM EST) [facility] Method Time Signature COLONOSCOPY [facility] Endoscopy Patient Name: Melinda Sky ? Procedure Date: 10/13/2011 08:39:32 AM ? Date of : 1955 ? Age: 56 ? Procedure: ? Colonoscopy Indications: ? Screening for malignant neoplasm in ? the colon Providers: ? Joshua Rosas MD, Nany Loomis ? TEJAS Paz, Anette Linton, ? Cardiovascular Surgical Tech Referring MD: ?Alison Clemons MD Medicines: ? Midazolam 6 [...] MAR Action Action Date Dose Rate Site sodium chloride 0.9% New Bag 10/13/2011 8:45 AM EST 50 mL/hr 50 mL/hr infusion 50 mL/hr, Intravenous, CONTINUOUS, Starting on Aixa 10/13/11 at 0845, Until Aixa 10/13/11 at 1048, Endoscopy (Day of Procedure) documented in this encounter Active and Recently Administered Medications Times are shown in EST. Continuous Medication Order 10/11/2011 10/12/201110/13/2011 sodium chloride 0.9% infusion (CANCELED) 0845 (New Bag - Provider: Josselyn Pritchard, TEJAS) 50 mL/hr, at 50 mL/hr, Intravenous, CONT INUOUS, Starting Aixa 12/8/11 at 0845, Until Aixa 1211 at 1048, Endo (Pre-Procedure) PRN Medication Order 10/11/2011 10/12/2011 10/13/2011 fentaNYL 50mcg/mL injection (CANCELED) 0855 (Given - Provider: Nany Paz, TEJAS - Comment: pt titrated for sedation and comfort)0901 (Given - Provider: Nany Paz RN - Comment: pt awake )0904 (Given - Provider: Nany Paz RN - Comment: c/o abd cramping) ONCE PRN, Starting Aixa 11 at 0855, Until Aixa 10/13/11 at 1048, Pain, Intra- Operative (Intra-Procedure), Routine midazolam (VERSED) injection (CANCELED) 0858 (Given - Provider: Nany Paz, TEJAS)0859 (Given - Provider: Nany Paz RN - Comment: increase sedation pt awake)0902 (Given - Provider: Nany Paz RN)0904 (Given - Provider: Nany Paz, TEJAS) ONCE PRN, Starting Aixa 11 at 0858, Until Aixa 11 at 1048, Sleep, Intra- Operative (Intra-Procedure), Routine 091 0 (Given - Provider: Nany Paz RN - Comment: c/o cramps) documented in this encounter Care Teams Engine Repair Supervisor Relationship Specialty Start Date End Date Alison Clemons MD PCP - General 09/28/10 11/30/17 [address] [place] [address] documented as of this encounter
--- OUTSIDE RECORDS SUMMARY | 2022-10-07 01:34 | XMS_ITS | Encounter Summary ---
:1955 [place] [address] Care Team Providers Name Role Phone Alison Clemons MD Primary Care Provider Encounter Details Date Type Department Care Team Description 10/20/2010 Orders Only Lab [facility] Corona Francis MD [facility] [place] [address] [place] [address] [phone] (Wo rk) Social History Tobacco Use Types Packs/Day Years Used Date Smoking Tobacco: Never Assessed Sex Assigned at Date Recorded Not on file documented as of this encounter Plan of Treatment Upcoming Encounters Date Type Specialty Care Team Description 01/09/2023 Office Visit Dermatology Keyshawn Morin MD [address] [facility] DERMATOLOGY [place], [place] [address] (Wo rk) documented as of this encounter Procedures Procedure Name Priority Date/Time Associated Diagnosis Comme nts SURGICAL PATHOLOGY Routine 10/20/2010 9:52 AM Res ults for this REPORT EST procedure are i n the results section. documented in this encounter Results PATHOLOGY SURGICAL PATHOLOGY FINAL REPORT (10/20/2010 9:52 AM EST) [facility] Method Time Signature Surgical CERNER Pathology ? [facility] Report ? Provider: ?? CORONA LOCO ?Pt. Name: ?? MELINDA ANDERSON ? Acc #: ?[id number] ?Pt. MRN: ?[id number] ? Col Date: ?? 10/20/20 10 ?/Sex: ?1955,(55 years),Female ? Rec Date: ?? 10/20/2010 ?LOC: ?OPW ? SURGICAL PATHOLOGY ? ---Pathologic Diagnosis--- ? Needle biopsies: ?Right breast. ? Diagnosis: ?Focal dense stromal fibro sis. ? Microcalcifications: ??N/A ? CR-0 ? 10/21/10 ? XL ? 10/21/10 Verified by: ? Shon GUERRERO, Lisa ? Pathologist ? (Electronic Si gnature) ? The attending pathologist whose signature appears o n this report has ? reviewed all diagnostic slides and has edited the raseheda ss and/or ? microscopic portion of the report in rendering the fi nal pathologic ? diagnosis. ? ---Microscopic Description--- ? Slides reviewed, microscopic description not recorded . ? ---Gross Description--- ? Labeled/Fixative: ? Right breast, formalin. ? Qty/Size/Weight: ?Fifteen yellow-white and focally hemorrhagic needle ? core biopsies, varying from 1.0 cm to 2.0 cm. ??No ? specimen radiograph accompanies the bottle(s). ? Sections/Processing: ??(T4) ??aje/SHB ? ---Clinical Information--- ? Specimen Submitted: ? A - Right breast ? Clinical History: ? (USBX 12 ga ASEC) focal hypoechoic area ? Clinical Diagnosis: ? Focal fibrosis/FCD, CA ? Alison Clemons MD ? [facility] ? [address] ? [place] [address] Specimen (Source) Anatomical Collection Method Collection Time Re ceived Time Location / / Volume Laterality 10/20/2010 9:52 AM EST Corona Loco MD PATHOLOGY/CYTOLOGY ORDERABLE S Performing Organization Address City/State/[place] [address] [facility] documented in this encounter Visit Diagnoses Not on filedocumented in this encounter Care Teams Child Watch Attendant Relationship Specialty Start Date End Date Alison Clemons MD PCP - General 09/28/10 11/30/17 [address] [place], [place] [id number] documented as of this encounter
--- OUTSIDE RECORDS SUMMARY | 2022-10-07 01:34 | XMS_ITS | Encounter Summary ---
:1955 Author Organization [facility] [place] [address] Care Team Providers Name Role Phone Alison Clemons MD Primary Care Provider Encounter Details Date Type Department Care Team Description 10/20/2010 Hospital Encounter [facility] Anila Clemons MD [address] [place] [address] (Wo rk) Social History Tobacco Use Types [...] Office Visit Dermatology Keyshawn Morin MD [address] [facility] DERMATOLOGY [place], [place] [address] (Wo rk) documented as of this encounter Visit Diagnoses Not on filedocumented in this encounter Care Teams Manager Floral Relationship Specialty Start Date End Date Alison Clemons MD PCP - General 09/28/10 11/30/17 [address] [place] [address] documented as of this encounter
--- OUTSIDE RECORDS SUMMARY | 2022-10-07 01:35 | XMS_ITS | Encounter Summary ---
:1955 Author Organization [facility] [place] [address] Care Team Providers Name Role Phone Alison Clemons MD Primary Care Provider Encounter Details Date Type Department Care Team Description 10/12/2010 Procedure visit [place] [address] Social History Tobacco Use Types Packs/Day Years Used Date Smoking Tobacco: Never Assessed Sex Assigned at Date Recorded Not on file documented as of this encounter Plan of Treatment Upcoming Encounters Date Type Specialty Care Team Description 01/09/2023 Office Visit Dermatology Keyshawn Morin MD [address] [place] [address] DERMATOLOGY [place], [place] [address] (Wo rk) documented as of this encounter Visit Diagnoses Not on filedocumented in this encounter Care Teams Flap Lining Binder Relationship Specialty Start Date End Date Alison Clemons MD PCP - General 09/28/10 11/30/17 [address] [place], [place] [address] documented as of this encounter
--- OUTSIDE RECORDS SUMMARY | 2022-10-07 01:35 | XMS_ITS | Encounter Summary ---
:1955 Author Organization [facility] [place] [address] Care Team Providers Name Role Phone Alison Clemons MD Primary Care Provider Encounter Details Date Type Department Care Team Description 10/08/2010 Office Visit [place] [address] Social History Tobacco Use Types Packs/Day Years Used Date Smoking Tobacco: Never Assessed Sex Assigned at Date Recorded Not on file documented as of this encounter Plan of Treatment Upcoming Encounters Date Type Specialty Care Team Description 01/09/2023 Office Visit Dermatology Keyshawn Morin MD [address] [place] [address] DERMATOLOGY [place], [place] [address] (Wo rk) documented as of this encounter Visit Diagnoses Not on filedocumented in this encounter Care Teams Projection Technician Relationship Specialty Start Date End Date Alison Clemons MD PCP - General 09/28/10 11/30/17 [address] [place], [place] [address] documented as of this encounter
--- OUTSIDE RECORDS SUMMARY | 2022-10-07 01:35 | XMS_ITS | Encounter Summary ---
:1955 Author Organization [facility] [place] [address] Care Team Providers Name Role Phone Alison Clemons MD Primary Care Provider Encounter Details Date Type Department Care Team Description 10/12/2010 Hospital Encounter [facility] Anila Clemons MD [address] [place] [address] (Wo rk) Social History Tobacco [...] Morin MD [address] [facility] DERMATOLOGY [place], [place] [address] (Wo rk) documented as of this encounter Visit Diagnoses Not on filedocumented in this encounter Care Teams Talent Assistant Relationship Specialty Start Date End Date Alison Clemons MD PCP - General 09/28/10 11/30/17 [address] [place] [address] documented as of this encounter
--- OUTSIDE RECORDS SUMMARY | 2022-10-07 01:35 | XMS_ITS | Encounter Summary ---
:1955 Author Organization [facility] [place] [address] Care Team Providers Name Role Phone Unavailable Primary Care Provider Unavailable Encounter Details Date Type Department Care Team Description 09/23/2010 Office Visit Dermatology Keyshawn Morin MD [facility] [address] DERMATOLOGY [place], [place] [address] [place] [address] [phone] (Wo rk) Social History Tobacco Use Types Packs/Day Years Used Date Smoking Tobacco: Never Assessed Sex Assigned at Date Recorded Not on file documented as of this encounter Plan of Treatment Upcoming Encounters Date Type Specialty Care Team Description 01/09/2023 Office Visit Dermatology Keyshawn Morin MD [address] [facility] [address] DERMATOLOGY [place], [place] [address] (Wo rk) documented as of this encounter Visit Diagnoses Not on filedocumented in this encounter
--- OUTSIDE RECORDS SUMMARY | 2022-10-07 01:36 | XMS_ITS | Encounter Summary ---
:1955 Author Organization [facility] Address [address] [place] [address] Care Team Providers Name Role Phone Unavailable Primary Care Provider Unavailable Encounter Details Date Type Department Care Team Description 04/27/2005 Before [facility] - Celina Reyes MD Converted Visit Maple conversion [address] (Maple) [address] [place] [address] [address] [place] [address] (Wo rk) Social History Tobacco Use Types Packs/Day Years Used Date Smoking Tobacco: Never Assessed Sex Assigned at Date Recorded Not on file documented as of this encounter Progress Notes Argelia Reyes MD - 01/06/2010 1323 EST DIVISION OF DERMATOLOGY PROGRESS/FOLLOWUP NOTE - 04/27/2005 SUBJECTIVE: is the first visit to the melanoma clinic for this woman who would like a skin check. She was diagnosed with a 0.45 mm deep melanoma in 1995. She has had a biopsy since that time of an atypical lesion which revealed mild cytologic atypia. There isno previous history of skin cancers and there is no family history of skin cancer. She is quite good about photo protection currently. For additional medical information please see patient intake sheet. There were no lesions that she is particularly concerned about. OBJECTIVE: Complete skin examination except for the genitalia was performed. There were no lesions suspicious for malignancy. She had very few nevi, all of which were regular in border and coloration. Two nevi had slightly variegate pigmentation but were regularly bordered and were present on the sole of the right foot and measured 5 and 6 mm, respectively. ASSESSMENT: 1. History of superficial melanoma in 1995, right inner thigh. 2. Mildly clinically atypical nevi, sole of right foot. PLAN: Impressions discussed and questions answered. A photograph taken of the nevi on the foot. Copies given to the patient which she will also share with Dr. Morin and Melinda Bond, and this may be helpfulin her routine skin checks. We discussed what to look for in terms of skin cancer, how to do self exams, and also reviewed photo protection. Written information given as well. She will return if there are any further concerns. Signed by Argelia Reyes MD 05/11/2005 16:27 Schuyler Mckinney MD Argelia Reyes MD D: - Argelia Reyes MD A - lb Job ID: Document ID: [id number] cc: MD Melinda Guy PA documented in this encounter Plan of Treatment Not on filedocumented as of this encounter Visit Diagnoses Not on filedocumented in this encounter
--- OUTSIDE RECORDS SUMMARY | 2022-10-07 01:36 | XMS_ITS | Encounter Summary ---
:1955 Author Organization [facility] Address [address] [place] [address] Care Team Providers Name Role Phone Gigi Lobo MD Primary Care Provider Unavailable Encounter Details Date Type Department Care Team Description 07/25/2018 Results Only [facility]- [facility]ISM Meseret Patel NP [phone] [place] [phone] (Wo rk) Social History Tobacco Use Types Packs/Day Years Used Date Smoking Tobacco: Never Assessed Sex Assigned at Date Recorded Not on file documented as of this encounter Plan of Treatment Not on filedocumented as of this encounter Procedures Procedure Name Priority Date/Time Associated Diagnosis Comme nts PAP TEST- RESULT Routine 07/25/2018 0:00 EDT Resu lts for this ONLY procedure are i n the results section. documented in this encounter Results PAP TEST- RESULT ONLY (07/25/2018 0:00 EDT) Component Value Ref Test Analysis Performed At [facility] Method Time Signature Pathology CYTOPATHOLOGY REPORT [facility] Report: CENTER Reports generated via electronic interface contain origina l data; LABORATORY however they are lacking the format of the original report. SERVICES Caution should be taken when reading/interpreting unformatte d reports. Name: ? MELINDA SKY ? Accession #: ? [id number] : ? 1955 (Age: 63) ??F ?Collect Date: ? 07/25/2018 Location: ? [facility] ? Receive Date: ? 07/27/2018 Provider: ?MESERET HERRINGOVU STRAIGHTENING MACHINE FEEDER Copy to: ? Specimen/Source: ? Pap Test, Cervix, ThinPrep Imaging System with manual evaluation Last Menstrual Period: ? SPECIMEN ADEQUACY ? Unsatisfactory for Evaluation - Insufficient numbers of squamous epith elial cells (less than 10% of expected cellularity) possibly due to lubricant GENERAL CATEGORIZATION ? Specimen processed and examined, but unsatisfac tory for evaluation of epithelial abnormality. Recommend Pap test in 2- 4 months as stated in ASCCP's 2012 Updated Guidelines. HPV testing will not be performed due to the potential for false negative results. ? Document reviewed and electronically signed by: ? INO Alvarez([facility]) ? Report Date: ??08/02/2018 14:25 End of Report Specimen (Source) Anatomical Location Collection Method / Collectio n Time Received Time / Laterality Volume 07/25/2018 07/27/2018 Meseretroman Patel STRAIGHTENING MACHINE FEEDER PATHOLOGY ORDERABLES Performing Organization Address City/State/ZIP Code Phon e Number [facility] [address] [place], [place] [id number] SERVICES documented in this encounter Visit Diagnoses Not on filedocumented in this encounter Care Teams Labor Relations Officer Relationship Specialty Start Date End Date Gigi Lobo MD PCP - General 09/11/15 04/05/22 documented as of this encounter
--- OUTSIDE RECORDS SUMMARY | 2022-10-07 01:36 | XMS_ITS | Encounter Summary ---
:1955 Author Organization [facility] Address [address] [place] [address] Care Team Providers Name Role Phone Unavailable Primary Care Provider Unavailable Encounter Details Date Type Department Care Team Description 06/04/2015 Results Only [facility]- Alison Campo MD [phone] [facility] [place], [place] [id number] (Wo rk) Social History Tobacco Use Types Packs/Day Years Used Date Smoking Tobacco: Never Assessed Sex Assigned at Date Recorded Not on file documented as of this encounter Plan of Treatment Not on filedocumented as of this encounter Procedures Procedure Name Priority Date/Time Associated Diagnosis Comme nts PAP TEST- RESULT Routine 06/04/2015 0:00 EDT Resu lts for this ONLY procedure are i n the results section. documented in this encounter Results PAP TEST- RESULT ONLY (06/04/2015 0:00 EDT) Component Value Ref Test Analysis Performed At [facility] Method Time Signature Pathology CYTOPATHOLOGY REPORT [facility] Report: CENTER Reports generated via electronic interface contain origina l data; LABORATORY however they are lacking the format of the original report. SERVICES Caution should be taken when reading/interpreting unformatte d reports. Name: ? MELINDA SKY ? Accession #: ? [id number] ? : ? 1955 (Age: 60 ) ??F ?Collect Date: ? 06/04/2015 ? Location: ? [facility] ? Receive Date: ? 06/05/2015 ? Provider: ALISON REIS MD Copy to: ? Final Report SPECIMEN ADEQUACY ? Satisfactory for Evaluation - assessment of transformation zone component not appl icable ( e.g. atrophy, vaginal sample, hysterectomy) GENERAL CATEGORIZATION ? Negative for Intraepithelial Lesion or Malignancy ?? Menstrual/ Status: ??Post Menopausal Specimen/Source: ??Pap Test, Cervix/Endocervix, ThinPr ep Imaging System with manual evaluation Document reviewed and electronically signed by: ? Janis Ceballos, ION(ASCP)(IAC) ? Report ??Date: 06/09/2015 17:41 HPV with Pap Test ? Date Ordered: ? 06/09/2015 ? Status: ?? Signed Out ?Date Complete: ? 06/12/2015 ? By: ??System In formerly [facility] ? Date Reported: ? 06/12/2015 ? Interpretation RESULT: Negative for HPV. No E6 or E7 mRNA is detected from HPV types 16,18,31,33,35, 39,45,51,52,56,58,59,66, and 68 by appeals representative mediated amplification. Comments Document reviewed and electronically signed by: ? System Interface ? Report date: 06/12/2015 By the signature above, the attending physician certifies th at he/she has personally conducted a gross and/or microscopic examin ation of the described specimens and rendered or confirmed the above diagnosis. End of Report Specimen (Source) Anatomical Location Collection Method / Collectio n Time Received Time / Laterality Volume 06/04/2015 06/05/2015 Alison Reis MD PATHOLOGY ORDERABLES Performing Organization Address City/State/ZIP Code Phon e Number [facility] [address] [place] [address] SERVICES documented in this encounter Visit Diagnoses Not on filedocumented in this encounter
--- OUTSIDE RECORDS SUMMARY | 2022-10-07 01:36 | XMS_ITS | Encounter Summary ---
:1955 Author Organization [facility] Address [address] [place] [address] Care Team Providers Name Role Phone Unavailable Primary Care Provider Unavailable Encounter Details Date Type Department Care Team Description 12/06/2007 Results Only [facility] - Valeria Sargent PA conversion [address] [place] [address] Social History Tobacco Use Types Packs/Day Years Used Date Smoking Tobacco: Never Assessed Sex Assigned at Date Recorded Not on file documented as of this encounter Plan of Treatment Not on filedocumented as of this encounter Procedures Procedure Name Priority Date/Time Associated Diagnosis Comme nts CYTOPATHOLOGY Routine 12/06/2007 0:00 EST Results for this procedure are i n the results section . documented in this encounter Results CYTOPATHOLOGY (12/06/2007 0:00 EST) Component Value Ref Test Analysis Performed At [facility] Method Time Signature Pathology CYTOPATHOLOGY REPORT [facility] Report: [facility] Reports generated via electronic interface contain original data; however they are lacking the format of the original report. Caution should be taken when reading/interpreting unformatte d reports. Name: ? MELINDA SKY ? Accession #: ? [id number] : ? 1955 (Age: 52) ??F ?Collect Date: ? 12/06/2007 Location: ? [facility] ? Receive Date: ? 12/10/2007 Provider: ?VALERIA SCHROEDER Copy to: ? Specimen/Source: ?ThinPrep Pap Test, E ndocervix, processed on [place] ThinPrep Imaging System, with manual evaluation Last Menstrual Period: ? 08/31/07 Previous Gynecologic Pathology: ? ASC-US: + h/o Other: ? HPVA - HPV testing requested if ASC-US on the current ThinPr ep Pap test. ? SPECIMEN ADEQUACY ? Satisfactory for Evaluation - transformation zone component present GENERAL CATEGORIZATION ? Negative for Intraepithelial Lesion or Malignancy ? Document reviewed and electronically signed by: ? Kg Ochoa, ION(ASCP) ? Report Date: ??12/13/2007 14:23 End of Report Specimen (Source) Anatomical Location Collection Method / Collectio n Time Received Time / Laterality Volume 12/06/2007 12/10/2007 Valeria SCHROEDER PATHOLOGY ORDERABLES Performing Organization Address City/State/ZIP Code Phon e Number [facility] [address] [place] [address] SERVICES ALF [facility] [address] [place] [address] documented in this encounter Visit Diagnoses Not on filedocumented in this encounter
--- OUTSIDE RECORDS SUMMARY | 2022-10-07 01:36 | XMS_ITS | Encounter Summary ---
:1955 Author Organization [facility] Address [address] [place] [address] Care Team Providers Name Role Phone Unavailable Primary Care Provider Unavailable Encounter Details Date Type Department Care Team Description 02/07/2012 Results Only [facility] Anila Reis MD Laboratory Services - [address] [place] [address] [address] [facility] [place], [place] [id number] [phone] Social History Tobacco Use Types Packs/Day Years Used Date Smoking Tobacco: Never Assessed Sex Assigned at Date Recorded Not on file documented as of this encounter Plan of Treatment Not on filedocumented as of this encounter Procedures Procedure Name Priority Date/Time Associated Diagnosis Comme nts PAP TEST- RESULT Routine 02/07/2012 0:00 EDT Resu lts for this ONLY procedure are i n the results section. documented in this encounter Results PAP TEST- RESULT ONLY (02/07/2012 0:00 EDT) Component Value Ref Test Analysis Performed At [facility] Method Time Signature Pathology CYTOPATHOLOGY REPORT [facility] Report: [facility] Reports generated via electronic interface contain original data; however they are lacking the format of the original report. Caution should be taken when reading/interpreting unformatte d reports. Name: ? MELINDA SKY ? Accession #: ? [id number] ? : ? 1955 (Age: 56) ??F ?Collect Da te: ? 02/07/2012 ? Location: ? [facility] ? Receive Date: ? 02/08/2012 ? Provider: ALISON REIS MD Copy to: ? Final Report SPECIMEN ADEQUACY ? Satisfactory for Evaluation - transformation zone component present GENERAL CATEGORIZATION ? Negative for Intraepithelial Lesion or Malignancy ?? Last Menstural Period: 2005 Menstural/ Status: ??Post Menopausal Specimen/Source: ??Pap Test, Cervix/Endocervix, ThinPr ep Imaging System with manual evaluation Document reviewed and electronically signed by: ? Sidney De Jesus, [place](ASCP) ? Report ??Date: 2012 11:17 HPV with Pap Test ? Date Ordered: ? 2012 ? Status: ?? Amena d Out ?Date Complete: ? 02/14/2012 ? By: ??System Interface ? Date Reported: ? 02/14/2012 ? Interpretation RESULT: Negative for HPV. No E6 or E7 mRNA is detected from HPV types 16,18,31,33,35, 39,45,51,52,56,58,59,66, and 68 by customer account technician mediated amplification. Comments Document reviewed and electronically signed by: ? System Interface ? Report date: 02/14/2012 By the signature above, the attending physician certifies th at he/she has personally conducted a gross and/or microscopic examin ation of the described specimens and rendered or confirmed the above diagnosis. End of Report Specimen (Source) Anatomical Location Collection Method / Collectio n Time Received Time / Laterality Volume 02/07/2012 02/08/2012 Alison Reis MD PATHOLOGY ORDERABLES Performing Organization Address City/State/ZIP Code Phon e Number [facility] [address] [place] [address] SERVICES ALF [facility] [address] [place] [address] documented in this encounter Visit Diagnoses Not on filedocumented in this encounter
--- OUTSIDE RECORDS SUMMARY | 2022-10-07 01:36 | XMS_ITS | Encounter Summary ---
:1955 Author Organization [facility] Address [address] [place] [address] Care Team Providers Name Role Phone Meseret Patel NP Primary Care Provider Encounter Details Date Type Department Care Team Description 05/02/2022 Lab Requisition [facility] Gerald Burgess for Pathology & MD Salma screening for Laboratory Medicine [address] malignant neoplasm - [place], [place] of colon [address] [facility] [address] [place] [address] Social History Tobacco Use Types Packs/Day Years Used Date Smoking Tobacco: Never Assessed Sex Assigned at Date Recorded Not on file documented as of this encounter Plan of Treatment Not on filedocumented as of this encounter Procedures Procedure Name Priority Date/Time Associated Diagnosis Comme nts SURGICAL PATHOLOGY Today 05/02/2022 8:50 EDT Encounter for R esults for this screening for procedure are in malignant neoplasm the resul ts of colon section. documented in this encounter Results SURGICAL PATHOLOGY (05/02/2022 8:50 EDT) Component Value Ref Test Analysis Performed At [facility] Method Time Signature Note to The following 05/06/2022 [facility] MEDICAL Patient pathology results 14:39 EDT CENTER have been LABORATORY interpreted by SERVICES your pathologist and may be available to you before your health provider has had the opportunity to review them. Please allow time for your provider to receive these results and explore management options, if applicable. Final A. COLON, ASCENDING, POLYP, BIOPSY: 11/2021 [facility] MEDICAL Diagnosis - Benign colonic mucosal fold. 14:39 [facility] LABORATORY SERVICES Attestation By the signature 05/06/2022 [facility] MEDICA L Electronically below, the 14:39 [facility] signed by attending LABORATORY Tammy Peterson physician ANDERS Claros MD on certifies that 022 at 1439 they have 1) personally conducted a gross and/or microscopic examination of the described specimen(s), and/or personally interpreted the results of laboratory testing of the described specimen(s), and 2) personally rendered or confirmed the above diagnosis. Clinical Screening for 05/06/2022 [facility] MEDICAL History colon cancer 14:39 [facility]ORATORY SERVICES Gross A. 05/06/2022 [facility] MEDICAL Description Received in formalin severo d with proper patient identification (initials H, J) and ascending colon polyp is a single fragment of jameson soft tissue (0.5 x 0.2 x 0.2 cm). The specimen is entirely submitted in A1. 14:39 [facility] ELDA MARCANO(ASCP) 05/03/2022 8:57 SERVICES Performing Lab [facility] 05/06/2022 [facility] MEDIC AL LAB 14:39 [facility] SERVICES Scanned Images 05/06/2022 [facility] MEDICAL 14:39 [facility] SERVICES Specimen Anatomical Collection Method Collection Time Receive d Time (Source) Location / / Volume Laterality Tissue ASCENDING COLON 05/02/2022 8:50 2 STRUCTURE / EDT 18:00 EDT Unknown Salma Burgess MD PATHOLOGY ORDERABLES Performing Organization Address City/State/ZIP Code Phon e Number [facility] [address] [place] [address] SERVICES documented in this encounter Visit Diagnoses Diagnosis Encounter for screening for malignant ne oplasm of colon Special screening for malignant neoplasm s, colon documented in this encounter Care Teams Party Director Relationship Specialty Start Date End Date Meseret Patel NP PCP - General 04/06/[address] [place] [phone] documented as of this encounter
--- OUTSIDE RECORDS SUMMARY | 2022-10-07 01:36 | XMS_ITS | Clinical Summary ---
:1955 Author Organization [facility] Address [address] [place] [address] Care Team Providers Name Role Phone Meseret Patel NP Primary Care Provider Social History Tobacco Use Types Packs/Day Years Used Date Smoking Tobacco: Never Assessed Sex Assigned at Date Recorded Not on file Plan of Treatment Health Maintenance Due Date Last Done Comments Hepatitis C Screen 1955 COVID-19 Vaccine (#1) 1955 Fall Risk Screening 02/11/2020 Insurance Payer Benefit Plan / Subscriber ID Effective Dates Phone Addre ss Type Group MEDICARE MEDICARE A/B [id number] 2020-Presen P [id number] Medicare GL [place] [facility] [place] [address] [place] [id number] 2020-Presen [address] [place] [address] [place] [address] [address] (Home) [place] [phone] (Work) Melinda Sky Personal/Family Self 1955 [address] (Home) [place] [phone] (Work) Melinda Sky Personal/Family Self 1955 [address] (Home) [place] [phone] (Work) Melinda Sky Personal/Family Self 1955 [address] (Home) [place] [phone] (Work) Melinda Sky Personal/Family Self 1955 [address] (Home) [place] [phone] (Work) Sunshine Skyith Personal/Family Self 1955 [address] (Home) [place] [phone] (Work) Sunshine Skyith Personal/Family Self 1955 [address] (Home) [place] [phone] (Work) Sunshine Skyith Personal/Family Self 1955 [address] (Home) [place] [phone] (Work) Care Teams Supervisor Tank Cleaning Relationship Specialty Start Date End Date Meseret Patel NP PCP - General 04/06/[address] [place] [phone]
--- NOTE | 2022-10-07 06:30 | DI.US_ITS ---
Exam(s) US AAA SCREENING EXAM: US AAA SCREENING CLINICAL HISTORY: AAA screening,FAMILY H/O ISCHEMIC HEART DISEASE.Z82.49 COMPARISON: No exams were available for comparison FINDINGS: Abdominal Aorta: Proximal: 1.6 cm Mid: 1.7 cm Distal: 1.5 cm Iliacs: Right: 1.2 cm Left: 1.2 cm IMPRESSION: No evidence of abdominal aortic aneurysm. DATA REPOSITORY:
== END 2022-10-07 01:44 ==
LOC: DI 01:25
PROVIDERS: PCP Nurse Practitioner Family; Visit Provider Nurse Practitioner Family
DX: Z82.49 Family history of ischemic heart disease and other diseases of the circulatory system (principal); Z13.6 Encounter for screening for cardiovascular disorders
CPT/HCPCS: 76706

== ENCOUNTER 2022-10-07 02:16 | Outpatient (CLI) | payer MEDICARE, BC, SELFPAY ==
[2022-10-07 08:34] LABS: Anion Gap 7.2 mmol/L (3-11); BUN 14 mg/dL (7-18); CO2 31.8 mmol/L (21.0-32.0); CREATININE 0.7 mg/dL (0.55-1.02); Calcium 9.6 mg/dL (8.5-10.1); Chloride 100 mmol/L (98-107); Estimated GFR 94.73 (mL/min/1.73m2); Glucose 93 mg/dL (74-106); Potassium 3.5 mmol/L (3.5-5.1); Sodium 139 mmol/L (136-145)
== END 2022-10-07 02:17 | disposition home or self-care (01) ==
LOC: LBO 02:16
PROVIDERS: PCP Nurse Practitioner Family; Visit Provider Nurse Practitioner Family
DX: I10 Essential (primary) hypertension (principal)
CPT/HCPCS: 36415; 76706; 80048

== ENCOUNTER 2023-10-02 03:24 | Outpatient (CLI) | payer MEDICARE, BC, SELFPAY ==
[2023-10-02 12:52] LABS: Anion Gap 8.9 mmol/L (3-11); BUN 15 mg/dL (7-18); CO2 30.1 mmol/L (21.0-32.0); CREATININE 0.7 mg/dL (0.55-1.02); Calcium 9.5 mg/dL (8.5-10.1); Calculated LDL 89 mg/dL (<100); Chloride 100 mmol/L (98-107); Cholesterol 168 mg/dL (<200); Estimated GFR 94.15 (mL/min/1.73m2); Glucose 88 mg/dL (74-106); HDL Cholesterol 67 mg/dL (40-60); Potassium 3.3 mmol/L (3.5-5.1); Sodium 139 mmol/L (136-145); TSH (W/Ref FT4) 4.13 uIU/mL (0.36-3.74); Triglyceride 60 mg/dL (<150)
[2023-10-02 13:19] LABS: FREE T4 0.95 ng/dL (0.76-1.46)
[2023-10-03 09:00] LABS: Hepatitis C Ab w Rflx HCV PCR Negative (Negative)
== END 2023-10-02 03:25 | disposition home or self-care (01) ==
LOC: LOS 03:24
PROVIDERS: PCP Nurse Practitioner Family; Visit Provider Nurse Practitioner Family
DX: I10 Essential (primary) hypertension (principal); Z00.00 Encounter for general adult medical examination without abnormal findings
CPT/HCPCS: 36415; 80048; 80061; 86803; 84439; 84443

== ENCOUNTER 2023-12-13 02:38 | Outpatient (CLI) | payer MEDICARE, BC, SELFPAY ==
[2023-12-13 12:22] LABS: Potassium 3.7 mmol/L (3.5-5.1)
== END 2023-12-13 02:39 | disposition home or self-care (01) ==
LOC: LOS 02:38
PROVIDERS: PCP Nurse Practitioner Family; Visit Provider Nurse Practitioner Family
DX: E87.6 Hypokalemia (principal)
CPT/HCPCS: 36415; 84132

== ENCOUNTER 2024-10-04 01:42 | Outpatient (CLI) | payer MEDICARE, BC, SELFPAY ==
[2024-10-04 10:40] LABS: Abs Immature Grans 0.03 10^3/uL (0.0-0.06); Absolute Basophil Count 0.03 10^3/uL (0.0-0.2); Absolute Eosinophil Count 0.06 10^3/uL (0.0-0.7); Absolute Lymphocyte Count 1.07 10^3/uL (1.2-3.4); Absolute Monocyte Count 0.55 10^3/uL (0.1-0.8); Absolute Neutrophil Count 4.79 10^3/uL (1.2-6.7); Basophils % 0.5 %; Eosinophils % 0.9 %; HCT 40.6 % (36.0-46.0); Immature Grans % 0.5 %; Lymphocytes % 16.4 %; MCH 33.5 pg (27.0-33.0); MCHC 34.5 % (32.0-36.0); MCV 97 fL (80-95); MPV 9.7 fL (8.0-11.0); Monocytes % 8.4 %; Neutrophils % 73.3 %; Platelet Count 256 10^3/uL (130-400); RBC 4.18 10^6/uL (3.93-5.22); RDW-SD 43.5 fL; WBC 6.53 10^3/uL (4.4-10.8)
[2024-10-04 13:43] LABS: Anion Gap 8.3 mmol/L (3-11); BUN 23 mg/dL (7-18); CO2 28.7 mmol/L (21.0-32.0); CREATININE 0.8 mg/dL (0.55-1.02); Calcium 9.3 mg/dL (8.5-10.1); Chloride 100 mmol/L (98-107); Estimated GFR 79.71 (mL/min/1.73m2); Glucose 89 mg/dL (74-106); Potassium 3.6 mmol/L (3.5-5.1); Sodium 137 mmol/L (136-145); TSH (W/Ref FT4) 2.42 uIU/mL (0.36-3.74)
== END 2024-10-04 01:43 | disposition home or self-care (01) ==
LOC: LOS 01:43
PROVIDERS: PCP Nurse Practitioner Family; Visit Provider Nurse Practitioner Family
DX: E03.8 Other specified hypothyroidism (principal); Z12.39 Encounter for other screening for malignant neoplasm of breast; I10 Essential (primary) hypertension; Z71.89 Other specified counseling
CPT/HCPCS: 36415; 80048; 84443; 85025

== ENCOUNTER 2025-03-11 00:50 | Outpatient (CLI) | payer MEDICARE, BC, SELFPAY ==
--- NOTE | 2025-03-11 08:15 | DI.RAD_ITS ---
Exam(s) XR KNEE LT 3V AP,LAT,ENMANUEL EXAM: XR KNEE LT 3V AP,LAT,ENMANUEL CLINICAL HISTORY: severe pain, atraumatic,m25.562. TECHNIQUE: 2D digital imaging was performed. Three views. COMPARISON: No exams were available for comparison FINDINGS: BONES: No acute fracture is present. No bony destructive lesion is seen. JOINTS: Moderate narrowing of the lateral femoral tibial joint space. Compensatory widening of the m edial femoral tibial joint space creating mild valgus angulation. A joint effusion is seen. SOFT TISSUE: Medial venous varicosities. IMPRESSION: Moderate degenerative changes of lateral femoral tibial joint. DATA REPOSITORY: RADIATION DOSE DELIVERED:
== END 2025-03-11 01:10 ==
LOC: DI 00:51
PROVIDERS: PCP Nurse Practitioner Family; Visit Provider Nurse Practitioner Family
DX: M17.12 Unilateral primary osteoarthritis, left knee (principal)
CPT/HCPCS: 73562

== ENCOUNTER → 2025-06-16 10:12 | Outpatient (BNVA) | payer MEDICARE, BC, SELFPAY | PROVIDERS: PCP Nurse Practitioner Family; Referring Provider Nurse Practitioner Family; Visit Provider Student in an Organized Health Care Education/Training Program | DX: M17.12 Unilateral primary osteoarthritis, left knee (principal) | CPT/HCPCS: 99204 ==

== ENCOUNTER 2025-07-10 11:25 | Outpatient (CLI) | payer MEDICARE, BC, SELFPAY ==
--- NOTE | 2025-07-10 11:15 | RT.EKG_ITS ---
APPROVED REPORT Exam: Resting ECG Reason for Exam: pre op Patient Location: O HR:67 bpm ECG Measurements Heart Rate 67 AXIS CO 235 P 67 QRSd 101 QRS 71 QT 401 T 39 QTc 424 Conclusion Sinus rhythm...normal P axis, V-rate 50- 99 Prolonged CO interval...CO >220, V-rate 50- 90
== END 2025-07-10 11:26 | disposition home or self-care (01) ==
LOC: DI.CM 11:25
PROVIDERS: PCP Nurse Practitioner Family; Visit Provider Nurse Practitioner Family
DX: Z01.818 Encounter for other preprocedural examination (principal)
CPT/HCPCS: 93010

== ENCOUNTER 2025-07-25 01:04 | Outpatient (CLI) | payer MEDICARE, BC, SELFPAY ==
[2025-07-25 11:21] LABS: HCT 38.8 % (36.0-46.0); HGB 13.6 g/dL (11.2-15.7); MCH 32.7 pg (27.0-33.0); MCHC 35.1 % (32.0-36.0); MCV 93 fL (80-95); MPV 9.1 fL (8.0-11.0); Platelet Count 278 10^3/uL (130-400); RBC 4.16 10^6/uL (3.93-5.22); RDW 12.1 % (11.7-14.6); RDW-SD 41.6 fL; WBC 5.87 10^3/uL (4.4-10.8)
[2025-07-25 12:07] LABS: Anion Gap 7.6 mmol/L (3-11); BUN 13 mg/dL (7-18); CO2 30.4 mmol/L (21.0-32.0); Calcium 9.5 mg/dL (8.5-10.1); Chloride 93 mmol/L (98-107); Estimated GFR 96.50 (mL/min/1.73m2); Glucose 96 mg/dL (74-106); Potassium 3.4 mmol/L (3.5-5.1); Sodium 131 mmol/L (136-145)
== END 2025-07-25 01:05 | disposition home or self-care (01) ==
LOC: LBO 01:04
PROVIDERS: PCP Nurse Practitioner Family; Visit Provider Student in an Organized Health Care Education/Training Program
DX: M17.12 Unilateral primary osteoarthritis, left knee (principal); Z01.818 Encounter for other preprocedural examination
CPT/HCPCS: 36415; 80048; 85027; 99024; 77073

== ENCOUNTER 2025-07-25 10:33 | Outpatient (CLI) | payer MEDICARE, BC, SELFPAY ==
--- NOTE | 2025-07-25 09:45 | DI.RAD_ITS ---
Exam(s) XR STANDING ALIGNMENT EXAM: XR STANDING ALIGNMENT CLINICAL HISTORY: LEFT KNEE DJD. TECHNIQUE: 2D digital imaging was performed. Four images were obtained. COMPARISON: CR XR KNEE LT 3V AP,LAT,ENMANUEL from 03/11/2025 FINDINGS: BONES: The hips are well maintained. In the right knee there is mild narrowing of the medial femoral tibial joint. Osteophytes are seen both medially and laterally. In the left knee there is marked narrowing of the lateral femoral tibial joint. There are small osteophytes in the medial femoral tibial joint. The ankles are well maintained.There is no significant leg length discrepancy. SOFT TISSUE: Normal. IMPRESSION: Degenerative changes of the knees bilaterally. DATA REPOSITORY: RADIATION DOSE DELIVERED:
== END 2025-07-25 10:34 | disposition home or self-care (01) ==
LOC: DIORS 10:33
PROVIDERS: PCP Nurse Practitioner Family; Visit Provider Physician Assistant
DX: Z01.818 Encounter for other preprocedural examination (principal); M17.12 Unilateral primary osteoarthritis, left knee
CPT/HCPCS: 99024; 77073

== ENCOUNTER 2025-08-06 05:50 | Day surgery (SDC) | payer MEDICARE, BC, SELFPAY ==
[2025-08-06] VITALS (20 sets, daily range): BP systolic 138–180; BP diastolic 63–86; PULSE 59–71; RESP 17–25; TEMP 36.2–36.6; O2SAT 94–99; BMI 23.2
[2025-08-06] MEDS: Celecoxib 200 MG CAP 400 MG PO (06:18)
[2025-08-06] MEDS: Acetaminophen 500 MG TAB 1000 MG PO (06:18)
[2025-08-06] MEDS: Gabapentin 300 MG CAP PO (06:18)
[2025-08-06] MEDS: Lactated Ringers 1,000 ML 80 ML IV (06:45)
--- NOTE | 2025-08-06 06:50 | W.ANESPRE ---
General Info Date of Service Date Performed: 08/06/25 Height: 5 ft 5.5 in Weight: 64.3 kg Body Mass Index (BMI): 23.2 Surgical Procedure: Operation Date: 08/06/25 07:40 Proposed Procedure Side Surgeon p Knee Total Arthroplasty w/OrthAlign Left Hay Luna MD Meds Allergies and Home Medications Allergies Allergy/AdvReac Type Severity Reaction Status Date / Time chocolate flavor AdvReac Severe MIGRAINE, Verified 08/06/25 06:15 peanut AdvReac Severe COUGHING, Verified 08/06/25 06:15 WHEEZING adhesive AdvReac Intermediate Skin Rash Verified 08/06/25 06:15 lisinopril AdvReac Mild COUGH Verified 08/06/25 06:15 fake fur, fleece Allergy Severe RASH, Uncoded 08/06/25 06:15 ASTHMA ATTACK PINK INSULATION Allergy Severe SWELLING Uncoded 08/06/25 06:15 Home Medication ?Medication ?Instructions ?Recorded ascorbic acid (vitamin C) 1,000 mg 1,000 mg PO DAILY 02/09/13 tablet calcium 600 mg (as 1 ea PO DAILY 02/09/13 carbonate)-vitamin D3 10 mcg (400 unit) capsule multivitamin (Multi-Day tablet) 1 ea PO DAILY 02/09/13 echinacea 400 mg capsule 2 cap PO am 02/12/13 glucosamine sulf dipot 1 cap PO DAILY 07/31/19 chlr,msm,chond 550 mg-C 30 mg-edwin 1 mg capsule mv-min-vit C 1,000 mg-elderberry 1 tab PO DAILY 08/06/20 50 mg-herb 35.5mg effervescent tablet (Airborne Elderberry) vitamins A,C,J-gnwj-xdfioj 4,296 1 cap PO QAM AND QPM 08/06/20 mcg-226 mg-90 mg capsule (PreserVision AREDS) chlorthalidone 25 mg tablet 25 mg PO DAILY #90 tabs 11/11/24 losartan 100 mg tablet 100 mg PO DAILY #90 tabs 11/11/24 Cranberry and Vitamin C PO DAILY 07/10/25 acetaminophen 500 mg tablet 1,000 mg (2 x 500 mg) PO TID #90 08/06/25 tabs aspirin 81 mg tablet,delayed 81 mg PO BID #60 tabs 08/06/25 release celecoxib 200 mg capsule 200 mg PO BID #60 caps 08/06/25 dexamethasone 4 mg tablet 4 mg PO DAILY #2 tabs 08/06/25 docusate sodium 100 mg capsule 100 mg PO BID PRN #28 caps 08/06/25 gabapentin 300 mg capsule 300 mg PO QHS #14 caps 08/06/25 oxycodone 5 mg tablet 5 mg PO Q4H PRN #18 tabs 08/06/25 pantoprazole 40 mg tablet,delayed 40 mg PO DAILY #14 tabs 08/06/25 release Current Visit Medications: Current Medications Generic Name Dose Route Start Last Admin Trade Name Emelina PRN Reason Stop Dose Admin Acetaminophen 1,000 mg 08/06/25 06:00 08/06/25 06:18 Acetaminophen 500 Mg Tab PO 08/06/25 23:59 1,000 mg PREOP RICARDO Administration Celecoxib 400 mg 08/06/25 06:00 08/06/25 06:18 Celecoxib 200 Mg Cap PO 08/06/25 23:59 400 mg PREOP RICARDO Administration Gabapentin 300 mg 08/06/25 06:00 08/06/25 06:18 Gabapentin 300 Mg Cap PO 08/06/25 23:59 300 mg PREOP RICARDO Administration Ringer's Solution 1,000 mls @ 80 mls/hr 08/06/25 06:00 08/06/25 06:45 IV 08/06/25 23:59 80 mls/hr INFUSION RICARDO Administration Cefazolin Sodium/Dextrose 2 gm in 50 mls @ 100 mls/hr 08/06/25 06:00 Ancef Duplex IVPB 08/06/25 23:59 PREOP RICARDO Tranexamic Acid/Sodium Chloride 1,000 mg in 100 mls @ 600 mls/hr 08/06/25 06:00 IVPB 08/06/25 23:59 PREOP RICARDO IV Miscellaneous Supplies 1 each 08/06/25 06:00 Iv Access IV 08/06/25 23:59 DIRECTED RICARDO Sodium Chloride 0 ml 08/06/25 06:00 Normal Saline Flush 10 Ml Syr IV 08/06/25 23:59 PRN PRN Sodium Chloride 0 ml 08/06/25 06:00 Normal Saline 10 Ml Vial IJ 08/06/25 23:59 DIRECTED PRN Sterile Water 0 ml 08/06/25 06:00 Water,Injection,Sterile 10 Ml Vial IJ 08/06/25 23:59 DIRECTED PRN PFSH Active Problems Active Problems: Problem Status Onset Code 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 states 30 minutes after she leaves the hospital after a colonoscopy she ends up throwing up. Surgical History Surgical History Hx of colonoscopy (05/02/22) S/P removal of ovarian cyst (~1981) S/P right breast biopsy (10/20/10) Benign biopsy--dense stromal fibrosis S/P tonsillectomy and adenoidectomy Tobacco Smoking/Tobacco Use Status: Never Passive smoking exposure: No Second hand exposure: Yes Alcohol Alcohol Intake: never Substance Use Substance use: Never Substance use type: does not use Prental History History 0 Para Hx # Term Pregnancies Multiple births Hx # Pregnancies Ectopic pregnancies AB induced Hx Number of Living Children AB spontaneous Vital Signs and Lab Results Vital Signs Most Recent Vital Signs in EMR: Most Recent Vital Signs Temp Pulse Resp BP Pulse Ox 36.6 C 68 17 180/81 H 98 08/06/25 06:09 08/06/25 06:09 08/06/25 06:09 08/06/25 06:09 08/06/25 06:09 Lab Results Complete Blood Count: WBC, (4.4-10.8) 5.87 10^3/uL 07/25/25, 11:05 RBC, (3.93-5.22) 4.16 10^6/uL 07/25/25, 11:05 Hgb, (11.2-15.7) 13.6 g/dL 07/25/25, 11:05 Hct, (36.0-46.0) 38.8 % 07/25/25, 11:05 Plt Count, (130-400) 278 10^3/uL 07/25/25, 11:05 Complete Metabolic Panel: Sodium, (136-145) 131 mmol/L L 07/25/25, 11:05 Potassium, (3.5-5.1) 3.4 mmol/L L 07/25/25, 11:05 Chloride, (98-107) 93 mmol/L L 07/25/25, 11:05 Carbon Dioxide, (21.0-32.0) 30.4 mmol/L 07/25/25, 11:05 BUN, (7-18) 13 mg/dL 07/25/25, 11:05 Creatinine, (0.55-1.02) 0.6 mg/dL 07/25/25, 11:05 Est GFR (CKD-EPI 2020), (mL/min/1.73m2) 96.50 07/25/25, 11:05 Calcium, (8.5-10.1) 9.5 mg/dL 07/25/25, 11:05 Glucose, (74-106) 96 mg/dL 07/25/25, 11:05 Imaging and Studies Imaging and Studies Study information below may be from another EMR and interpreted by another provider. Please see original notes in EMR for more complete details. EKG Summary: EKG PATIENT NAME: Melinda Sky UNIT #: [id number] ORDERING PROVIDER: Karel Cardozo NP PRIMARY CARE PROVIDER: KAREL CARDOZO NP DATE/TIME OF SERVICE: 07/10/25 1133 : 1955 PERFORMING LOCATION: [facility] APPROVED REPORT Exam: Resting ECG Reason for Exam: pre op Patient Location: O HR:67 bpm ECG Measurements Heart Rate 67 AXIS OR 235 P 67 QRSd 101 QRS 71 QT 401 T39 QTc 424 Conclusion Sinus rhythm...normal P axis, V-rate 50- 99 Prolonged OR interval...OR >220, V-rate 50- 90 Anesthesia Assessment and Plan Anesthesia History Personal History: No History of Anesthesia Complications and PONV Family History: No Family History of Anesthesia Complications Exercise Tolerance Exercise Tolerance: Metabolic Equivalents>4 Pertinent Negatives Pertinent Negatives: No Symptoms of GERD, No Major Cardiovascular Symptoms or Complaints, No Major Pulmonary Symptoms or Complaints and No History of CVA/TIA Cardiac & Pulmonary Exam Cardiac Exam: Normal S1/S2 Heart Sounds Pulmonary Exam: Clear Bilateral Breath Sounds Implantable Cardiac Device Does patient have a Pacemaker or an ICD?: No Airway Exam Known Difficult Airway: No Mallampati Class: 2 Mouth Opening: Normal (> 3cm) Thyromental Distance: Greater than 3 cm Neck Range of Motion: Full ROM Neck Circumference: Normal Teeth Condition: Normal Dentition ASA Classification ASA Score: ASA 2 Emergency Case?: No NPO Status NPO Status: NPO Clears >2 hours, Solids >8 hours Anesthesia Plan Resuscitation Status: Full Code Anesthesia Technique: Spinal Anesthesia Airway Planned: Natural Airway Pain Management: Surgeon and patient request nerve block Monitors Used: Standard Monitors
--- NOTE | 2025-08-06 07:07 | PDOC.DSDIS_ITS ---
Date of service: 08/06/25 Discharge Plan Disposition Patient Disposition: Home Condition: Good Discharge Details Reason For Visit: L TKR Attending Provider: Hay Luna Primary Care Provider: Meseret Patel Home Meds and New Rx's Prescriptions: New celecoxib 200 mg capsule 200 mg PO BID Qty: 60 0RF aspirin 81 mg tablet,delayed release (DR/EC) 81 mg PO BID Qty: 60 0RF acetaminophen 500 mg tablet 1,000 mg PO TID Qty: 90 3RF pantoprazole 40 mg tablet,delayed release (DR/EC) 40 mg PO DAILY Qty: 14 0RF dexamethasone 4 mg tablet 4 mg PO DAILY Qty: 2 0RF docusate sodium 100 mg capsule 100 mg PO BID PRNQty: 28 0RF gabapentin 300 mg capsule 300 mg PO QHS Qty: 14 0RF oxycodone 5 mg tablet 5 mg PO Q4H PRNQty: 18 0RF Continued glucos sul 7XCb-vkc-lnklw-C-Mn 550-30-1 mg capsule 1 cap PO DAILY PreserVision AREDS 14,320-226-200 zzqg-wn-back capsule 1 cap PO QAM AND QPM Airborne Elderberry 1,000 mg-50 mg-35.5 mg tablet, effervescent 1 tab PO DAILY Cranberry and Vitamin C PO DAILY multivitamin [Multi-Day] 1 EACH tablet 1 ea PO DAILY ascorbic acid (vitamin C) 1,000 MG tablet 1,000 mg PO DAILY calcium carbonate-vitamin D3 1 EACH capsule 1 ea PO DAILY echinacea 400 MG capsule 2 cap PO am chlorthalidone 25 mg tablet 25 mg PO DAILY Qty: 90 3RF Rx Instructions: Take 1 pill daily losartan 100 mg tablet 100 mg PO DAILY Qty: 90 3RF Discharge Instructions Additional Instructions: Total Knee Discharge Instructions Activity: The most important activity is to walk and to work on gentle motion (both flexion and extension). You should try to take short walks a few times a day. It is important that when resting you work on keeping the knee straight. Avoid putting a pillow behind the knee as this will encourage flexion. Work on range of motion exercises as provided by Physical Therapy. - Start outpatient physical therapy within 2 weeks. - You should wear the HALLE hose on both legs for 2 weeks. You may remove these at night. You may also use any compression sock in place of the HALLE hose. - Utilize [employer] to review exercises, see videos on exercises and obtain basic information pertaining to your surgery and your recovery. Dressing: Remove the Solo wrap by 2 days after your surgery and put on the HALLE stocking given to you from the hospital. Keep the surgical dressing (underneath the SOLO wrap) in place for at least one week. After the first week it may be removed and replaced with light gauze and tape or nothing. The wound and dressing may get wet after 3 days but avoid soaking the dressing or otherwise it will need to be changed. Many people prefer covering the dressing with cling wrap (saran wrap) to minimize it from getting soaked. If it gets wet, just pat dry. If it starts to peel off then it will need to be changed. Medications: - You should take Tylenol and anti-inflammatory Celebrex as your primary pain control medications. If the Celebrex is too expensive or not covered, please call the office for another alternative (Advil/Ibuprofen or Naproxen/Aleve) - You have been prescribed a stronger pain medication Oxycodone for breakthrough pain, take as needed as prescribed. - You have also been prescribed a stomach acid reduction agent Pantoprozole to help reduce stomach acid and reflux. - You have been prescribed Gabapentin to take at night for restlessness and nerve pain. - You will be taking Aspirin 81mg twice a day for DVT prevention unless instructed otherwise. - You have also been prescribed Decadron to take to control post-operative nause a and pain. You will start this tomorrow. - If you have constipation you should take Colace or Miralax (both bzop-zux-pfbrqsm). It takes most people 3-4 days to have a bowel movement. Follow-up: 2 weeks If you have any acute concerns or questions, please do not hesitate to contact the office at [phone]. You may contact Dr. Luna with any questions after hours through the hospital at [phone] or on his cell phone at [phone]. Referrals: Hay Luna MD [ [facility], Orthopaedic Surgical] Equipment/Supplies: Walker Activity:: Activity as Tolerated Shower/Bathe:: 72 hours Diet:: As Tolerated Discharge Orders Discharge Orders: Discharge Order (Routine); Ordered 08/06/25 Ordered By: Severo Coello DS: Diagnosis Discharge Diagnosis (1) Left knee DJD: Status: Chronic
--- NOTE | 2025-08-06 07:23 | W.ANESNERVE ---
Nerve Block Single Injection Procedure Date and Time Date Performed: 08/06/25 Procedure Start: 07:15 Location Where Procedure Performed Procedure Location: Day Surgery Unit Reason Performed: Postoperative Analgesia Requesting Provider: Hay Luna Timeout Performed Timeout Performed: Yes Monitoring Used Blood Pressure, SpO2 and See EMR for corresponding vital signs Sterility Sterility: Hand Hygiene, Surgical Cap, Surgical Mask, Sterile Gloves and Chlorhexidine Sedation Given During Procedure Sedation Given (Indicate Dose Given): No Sedation given Patient Mental Status Patient Mental Status: Awake Nerve Block 1st Nerve Block: Laterality: Left Block Type: Adductor Canal Ultrasound Image Saved?: Yes Needle / Catheter Used: 100mm SonoPlex II Local Anesthetic Bolus (Indicate Dose Given): Lidocaine used for local infiltration of skin, Bupivacaine 0.25% Dose:: 10ml and Exparel Dose:: 10ml Additives (Indicate Dose Given): None Ultrasound: Sterile probe cover and gel used Nerve Stimulator: Supplement to Ultrasound use and No twitch or parasthesia noted < 0.5 mA Paresthesia: Left Paresthesia Duration: Transient Procedure Tolerated: No Complications and Patient tolerated well Procedure Outcome: Successful Performed By: Carrie Garcia Supervised By: Nona Vilchis
[2025-08-06] MEDS: ceFAZolin 2 GM/50 ML BAG IVPB (07:30)
[2025-08-06] MEDS: TRANEXAMIC ACID/SOD. CHL. 1,000 MG/100 ML BAG 600 MG IVPB (07:38)
--- NOTE | 2025-08-06 08:46 | W.PM.OP ---
Operative Note Operative Note PRE-OP DIAGNOSIS: Left Knee Osteoarthritis with Valgus Deformity POST-OP DIAGNOSIS: same PROCEDURE: Left Total Knee Replacement with Intraoperative Navigation SURGEON: Hay Luna NEWSPAPER DELIVERER: Jose Daniel Coello ANESTHESIA TYPE: General LMA/ETT and Spinal Refer to Anesthesia Record ESTIMATED BLOOD LOSS: 200 PATHOLOGY: none sent TOURNIQUET TIME: 0 COMPLICATIONS: None Patient was transported to: PACU Patient's condition: stable Implants: 1. Depuy Attune Cementless Cruciate Retaining Femoral Component, Size 5 Narrow 2. Depuy Attune Cementless Fixed Bearing Tibial Component, Size 4 3. Depuy Attune 5x10mm CR/FB Poly Indications: I have seen Rhina in clinic for symptoms of LEFT knee arthritis with valgus deformity, confirmed with radiographic findings. She has exhausted nonoperative methods and was having significant limitations in daily function and desired better function and less pain. I discussed the technical details of a knee replacement. I explained the risks of the procedure to include, but not limited to, bleeding, infection, pain, stiffness, fracture, damage to nerves and vessels, damage to muscles and tendons, loosening, need for repeat procedure, blood clot and cardiopulmonary demise. Despite these risks, Rhina elected to proceed. Findings: There was significant signs of arthritis throughout the lateral compartment of the knee. Procedure Description: Rhina was greeted in the preoperative holding area where the correct side was identified and marked. The consent was reviewed with the patient and signed. The history and physical was updated. All questions were answered. Preoperative mediacations were administered: Acetaminophen 1000mg, Celebrex 400mg, and Gabapentin 300mg. An adductor canal block was then administered by the anesthesia team in the DSU. She was taken back to the operating room. A spinal anesthestic was then administered. The patient was placed into the supine position on the operating room table. Posts were placed for positioning during the procedure. All bony prominences were well padded. Prophylactic antibiotics in the form of Cefazolin were administered. 1g of Tranxemic Acid was given intravenously within 30 minutes of incision. The left leg was then prepped with Chloraprep and draped in a standard fashion with impervious stockinette. A second prep with Chloraprep was performed prior to application of Iodine impregnated skin protection. A timeout to confirm correct identity, side and site, procedure, allergies, anesthesia, and medical concerns was performed. She did have some motion of the left leg prior to making incision. Therefore the knee was checked and stimulus to the left knee caused knee motion and therefore she was converted to a general anesthetic. I preemptively injected the skin and subcutaneous tissues with some of the peritracheal cocktail consisting of ropivacaine, epinephrine, clonidine, and ketorolac. Then, after successful ministration of general anesthesia, with the knee in some flexion, a midline incision was made overlying the knee. Full thickness skin flaps were raised once the extensor mechanism was encountered. These were raised medially and laterally. Any bleeding was controlled with electrocautery. Once the extensor mechanism was fully exposed, a medial parapatellar arthrotomy was performed in a flexed position. All bleeding from the arthrotomy and the geniculate arteries was coagulated. A medial subperiosteal peel was performed with electrocautery to the midcoronal plane. The fat pad was removed while keeping the patellar tendon protected. The anterior distal femur synovium was removed for later visualization. The ACL and PCL were resected and the anterior horn of the lateral meniscus was transected. The knee was then flexed with the patella everted. There was notable synovitis seen throughout the knee which was also resected. A single starting pin was then placed 1cm anterior to the PCL insertion and the notch in the direction of the femoral head. The OrthoAlign device was applied over the pin. It was oriented to be in line with the epicondylar axis and the trochlear groove. It was then pinned into place. The navigation computer was then turned on and calibrated. The distal femur cut was set at 0.5 degrees valgus and 3.5 degrees flexion. The distal femur cutting guide then was positioned for a 9mm cut. The distal femur was cut with an oscillating saw while protecting the soft tissues. The tibia was then addressed. The OrthoAlign device was placed over the tibial tubercle and medial tibia and secured into position. Once again, OrthoAlign was calibrated and then set for a 1 degree varus cut and 5.5 degrees of posterior slope. With this locked into position, the cut thickness stylus was used to assess cut thickness. The lateral side, most involved side, was set for a 4mm cut. This was then held in position and pinned into place with 2 additional pins and a cross pin for stability. The medial and lateral collateral ligaments were protected and the cut was performed. With this completed, it was assessed and noted to be of appropriate dimensions. The guide and OrthoAlign was removed. A spacer block was inserted and the knee was brought into extension to ensure enough space was present. . The Orthoalign gap balancing device was then placed in extension. This was used to ensure that the ligaments were properly balanced with up to 2 to 3 mm laxity laterally compared medially. The extension gap was measured as 21mm. The knee was then brought into 90 degrees of flexion and the ligament computing consultant was once again placed. Under the same amount of force the flexion gap was measured. The Attune specific jig was placed and the flexion gap was made to match the extension gap. The femur was then sized as a size 5 Narrow. The 4-in-1 cutting guide was the placed. An ginger wing was used to confirm appropriate position of the anterior cut to avoid notching. This cutting guide was ensured to be flush on the cut surface and then pinned into place with headed pins. While protecting the soft tissues, quad tendon, and collateral ligaments, the anterior and posterior cuts were performed with a saw. The central two pins were removed and the posterior and anterior chamfers were cut next. The notch-cutting guide was placed. This was pinned to lateralize the femoral component as much as possible while keeping it flush on the cut surface. This was then pinned into position. A saw was used to make the notch cut. A rasp smoothed the cut surfaces. The medial and lateral menisci were removed. A trial femoral component was then inserted, impacted down to the cut surfaces, and the lug holes were drilled. A provisional trial tibial component was placed and the knee was brought through range of motion. The polyethylene was trialed until there was good flexion and extension with excellent stability to the medial and lateral collaterals. The patella was tracking without thumbs. A size 10mm polyethylene component provided the best range of motion and stability with less than 2mm gapping with medial and lateral stress and full extension without significant hyperextension. The tibial cut surface was fully exposed. The tibia was then sized as a 4. The tibia had been previously marked during trialing to correspond to the center of the tibial component to help with rotation. The trial was aligned to this jose daniel, approximately rotated to the medial 1/3rd of the tibial tubercle. The trial was pinned into place. The tibia was prepared with a reamer and a keel punch and lug holes. The trial components were removed. The final components were opened on the back table. The periosteal and capsular tissues, especially posteriorly, around the knee were then systematically injected with a periarticular cocktail consisting of 246mg of Ropivacaine, 0.5mg of Epinephrine, 0.08mg of Clonidine, and 30mg of Ketorolac, diluted to 100cc. Then, the knee components were placed. Starting with the tibial component, the tibia was subluxed anteriorly and the lug holes of the component were lined up. The tibia was then impacted with an impactor and mallet until the tibial component was in contact with the tibia. Then, the femoral component was inserted. The lug holes were aligned and the component was impacted into position. The final polyethylene component was inserted. The knee was irrigated with Surgiphor Betadine solution. This was allowed to sit in the knee for 3 minutes and then it was thoroughly irrigated out with saline. The knee was then taken through range of motion. The patella was tracking with a no-thumbs technique. A complete synovectomy of the patella was performed. Any prominence to the lateral facet was resected with a rongeur. The capsule was then reapproximated with a No. 1 Vicryl at multiple locations. The capsule was finally closed with a No. 2 Stratafix, barbed suture. Deep tissues were then reapproximated with 0 Vicryl and 2-0 Vicryl. The skin was closed with a running 3-0 Monocryl in a subcuticular fashion. This was reinforced with skin glue. A Mepilex silver dressing was applied along with a qsit-mx-ejzcj YVROSE wrap. A CryoCuff was applied. Rhina was transferred to the hospital bed without difficulty an suffering no apparent complication. She has a good prognosis. Physical therapy will start today and without restrictions, weight-bearing as tolerated. Aspirin 81mg BID will be used for DVT prophylaxis. Date of Procedure: 08/06/25
--- NOTE | 2025-08-06 09:25 | W.ANESPOSTOP ---
Postoperative Evaluation Date, Time and Location Date Performed: 08/06/25 Time Performed: 09:26 Patient Location: PACU Vital Signs Most Recent Imported Vital Signs: Most Recent Vital Signs Temp Pulse Resp BP Pulse Ox 36.2 C L 63 18 176/74 H 99 08/06/25 09:19 08/06/25 07:10 08/06/25 07:10 08/06/25 07:10 08/06/25 07:10 Pain Score Most Recent Pain Score: Most Recent Pain Score Pain Level 2 08/06/25 09:19 Assessment Mental Status: Awake (Alert & Oriented to Patient Baseline) Airway and Respiratory Function: Patent airway with normal (patient baseline) respiratory exam Cardiovascular Function: Hemodynamically Stable Hydration Status: Adequately Hydrated Nausea & Vomiting: No Nausea or Vomiting Pain: Pain is tolerable per patient Peripheral Nerve Block: Regional nerve block not resolved at time of post operative discharge Postoperative Comments:: discussed with patient rationale for converting to GA- pt states understanding especially since we discussed that back plan during our preop discussion. all questions answered
[2025-08-06] MEDS: oxyCODONE 5 MG TAB PO (10:29)
--- NOTE | 2025-08-06 11:54 | IN_ITS ---
PT Notes Visit Reasons: L TKR Physical Therapy Day Surgery Initial Evaluation Date: 08/06/2025 Referring Doctor: ELDA Duke/Dr. Luna PT Orders: PT CONSULT: PT evaluation and treat status post Ortho surgery Precautions: WBAT left LE,TEDS x 2 weeks Patient Profile/Admitting Diagnosis: Melinda is a 70-year-old female presenting status post elective left TKA under general anesthesia by Dr. Luna on 08/06/2025. Postop uncomplicated PMHX: Left knee DJD (Chronic) Left knee pain (Acute) Essential hypertension (Chronic) Essential tremor (Chronic) History of skin cancer (Chronic) Melanoma 1995, sees dermatology Medical History Malignant melanoma of skin of right thigh (~02/1996) 0.5mm Breslow depth, right inner thigh near the medial knee Surgical History Hx of colonoscopy (05/02/22) S/P removal of ovarian cyst (~1981) S/P right breast biopsy (10/20/10) Benign biopsy--dense stromal fibrosisS/P tonsillectomy and adenoidectomy Social History/Home Situation: Patient resides alone in two-story home with 2 platform steps to enter. Patient primarily stays on first floor however does need to go to second floor to take care of her cat. Flight of stairs to second floor with 1 railing. Patient independent ADLs, ambulation, very active prior to knee issues. Equipment Owned/DME: Standard walker, cane, commode, 2 seats in her shower; pat ient fitted for and issued FWW Subjective: Patient reports her throat is a little sore feels irritated after having general anesthesia. She states her knee feels much better and is looking forward to the future. Objective: [] General Observation: Patient presented semireclined on stretcher with Cryo/Cuff to left knee. Mental Status: [] Alert and oriented x 4, cooperative, able to follow instruc tions, agreeable to participate in evaluation Pain: 3/10 left knee ROM: [] Right Upper Extremity: WNL Left Upper Extremity: WNL Right Lower Extremity: WNL Left Lower Extremity: Knee 0 to 105 degrees Strength: [] Right Upper Extremity: 5/5 Left Upper Extremity: 5/5 Right Lower Extremity: 5/5 Left Lower Extremity: Hip flexion: 3 -/5; hip abduction: 3 -/5; hip extension: 3 -/5; knee extension: 3/5; knee flexion: 3 -/5 ankle DF: 3/5 ; ankle PF: 3/5; strong quad set, straight leg raise in shortened range without lag Sensation: Intact Bed Mobility/Transfers: [] Supine to sit supervision intact Sit to stand SBA Stand to sit SBA Bed to chair SBA with FWW Gait: Ambulated with FWW reciprocal pattern 150 feet demonstrating decreased knee flexion slightly on left during swing phase. Stairs: Simulated platform step with use of FWW x 2 with supervision Balance: [] Static Sitting: Normal Dynamic Sitting: Good Static Standing: Normal with upper extremity support Dynamic Standing: Good with FWW Special Tests: [] Mobility Limitations Standardized Measure [] [facility] AM-PAC 6 clicks Basic Mobility Inpatient Short Form: [] Raw Score: 23 CMS Score: 11.20% deficit Informed Consent/Education: Patient instructed in purpose of PT consult. Treatment 07284 packet containing TKA exercise protocol has been given to patient. Education and training on initial set of 3 reps of exercises that can be done at home have been completed with patient. Functional mobility with FWW SBA Standard walker CGA and cues for safe management and placement of all 4 legs Stairs: With 1 rail 2 steps x 5 with standby assist step to pattern cues for sequencing Assessment: Patient is a 70-year-old female who presents with clinical signs and symptoms consistent with current/admitting diagnoses that have resulted to mobility limitations, gait instability, generalized weakness, and impairment of motor control as demonstrated by the following impairment level findings: 1. Decreased strength to left knee major muscle groups 2. Impaired standing balance 3. Limitation of joint range of motion in left knee 4. Pain left knee 5. Impaired functional activity tolerance Impairments are contributing to the following functional limitations: 1. Inability to safely ambulate without assistive device 2. Increase completion time for mobility ADL performance 3. Increased fall risk Patient is assessed as a low complexity based on the following: History: 70-year-old female with impairment level findings, functional limitations, and past medical history as indicated above Examination: Demonstrable impairment in strength, balance, and mobility level with underlying impairments and functional limitations as documented above Presentation: stable Decision Making: LOW Goals: N/A. PT evaluation and 1-2 treatment sessions only for functional mobility training using recommended AD and for HEP instruction. Plan of Care/Treatment Plan: N/A. PT evaluation and 1-2 treatment session only for functional mobility training using recommended AD and for HEP instruction. DISCHARGE RECOMMENDATIONS:Home with HEP and outpatient PT as scheduled TREATMENT CODE/TIME: 10738,[id number] Thank you for the opportunity to participate in the care of this patient. Debora Mares, PT [facility]
== END 2025-08-06 12:18 | disposition home or self-care (01) ==
PROVIDERS: PCP Nurse Practitioner Family; Visit Provider Student in an Organized Health Care Education/Training Program
PROC: (CPT 27447; principal; 2025-08-06 07:30)
DX: M17.12 Unilateral primary osteoarthritis, left knee (principal); G89.18 Other acute postprocedural pain
CPT/HCPCS: 20985; 27447; 64447; 97161; 97530; C1776; J0665; J0666; J0690; J1100; J2401; J2405; J2704

== ENCOUNTER 2025-08-21 12:03 | Outpatient (CLI) | payer MEDICARE, BC, SELFPAY ==
--- NOTE | 2025-08-21 11:08 | DI.RAD_ITS ---
Exam(s) XR KNEE LT 1V XR STANDING ALIGNMENT EXAM: XR STANDING ALIGNMENT and XR knee LT 1 V CLINICAL HISTORY: 1ST POST OP S/P L TKA. TECHNIQUE: 2D digital imaging was performed. Five images were obtained. COMPARISON: CR XR KNEE LT 3V AP,LAT,ENMANUEL from 03/11/2025 CR XR STANDING ALIGNMENT from 07/25/2025 FINDINGS: BONES: The hips are well maintained. Since the prior examination, the patient has undergone a left total knee arthroplasty. The orthopedic hardware is in good position. There are no suspicious lucencies in or around the orthopedic hardware to suggest loosening. There are mild degenerative changes seen in the right knee characterized by joint space narrowing and osteophytes. The ankles are well maintained.There is no significant leg length discrepancy. SOFT TISSUE: Normal. IMPRESSION: 1. Unremarkable left total knee arthroplasty. 2. Mild degenerative changes of the right knee. DATA REPOSITORY: RADIATION DOSE DELIVERED:
== END 2025-08-21 12:04 | disposition home or self-care (01) ==
LOC: DIORS 12:03
PROVIDERS: PCP Nurse Practitioner Family; Referring Provider Nurse Practitioner Family; Visit Provider Student in an Organized Health Care Education/Training Program
DX: Z47.1 Aftercare following joint replacement surgery (principal); Z96.652 Presence of left artificial knee joint
CPT/HCPCS: 99024; 73560; 77073

== ENCOUNTER → 2025-09-15 09:52 | Outpatient (BNVA) | payer MEDICARE, BC, SELFPAY | PROVIDERS: PCP Nurse Practitioner Family; Referring Provider Nurse Practitioner Family; Visit Provider Physician Assistant | DX: Z47.1 Aftercare following joint replacement surgery (principal); Z96.652 Presence of left artificial knee joint | CPT/HCPCS: 99024 ==

== ENCOUNTER 2025-10-09 01:30 | Outpatient (CLI) | payer MEDICARE, BC, SELFPAY ==
[2025-10-09 17:09] LABS: ALT 24 U/L (10-49); AST 26 U/L (<34); Albumin 4.4 g/dL (3.2-5.0); Alkaline Phosphatase 67 U/L (46-116); Anion Gap 6.4 mmol/L (3-11); BUN 21 mg/dL (9-23); Bilirubin, Total 0.70 mg/dL (0.2-1.2); CO2 29.6 mmol/L (20.0-31.0); Calcium 9.3 mg/dL (8.3-10.6); Chloride 100 mmol/L (98-107); Cholesterol 156 mg/dL (<200); Glucose 91 mg/dL (74-106); HDL Cholesterol 65 mg/dL (>40); Potassium 3.9 mmol/L (3.5-5.1); Sodium 136 mmol/L (136-145); Total Protein 6.7 g/dL (5.7-8.2)
== END 2025-10-09 01:31 | disposition home or self-care (01) ==
LOC: LOS 01:30
PROVIDERS: PCP Nurse Practitioner Family; Visit Provider Nurse Practitioner Family
DX: I10 Essential (primary) hypertension (principal)
CPT/HCPCS: 36415; 80053; 80061

== ENCOUNTER → 2025-10-27 10:19 | Outpatient (BNVA) | payer MEDICARE, BC, SELFPAY | PROVIDERS: PCP Nurse Practitioner Family; Referring Provider Nurse Practitioner Family; Visit Provider Physician Assistant | DX: Z47.1 Aftercare following joint replacement surgery (principal); Z96.652 Presence of left artificial knee joint | CPT/HCPCS: 99024 ==